=== PATIENT | female | born 1975 | race Hispanic/Latino ===

== ENCOUNTER 2023-01-27 17:22 | Emergency (ER) | payer OTHER, BC ==
[~2023-01-27] VITALS: Ht 165.1 cm; Wt 129.3 kg
[2023-01-27 17:46] VITALS: BP 148/81; PULSE 80; RESP 18
[2023-01-27 18:57] LABS: BASOPHILS # (AUTO) 0.05 K/uL (0.00-0.20); BASOPHILS % (AUTO) 0.5 % (0.0-5.0); EOSINOPHILS # (AUTO) 0.57 K/uL (0.00-0.70); EOSINOPHILS % (AUTO) 5.4 % (0.0-8.0); IMMATURE GRANULOCYTE ABSOLUTE 0.01 K/uL (0-1); LYMPHOCYTES # (AUTO) 3.3 K/uL (1.0-4.8); MEAN CORPUSCULAR HEMOGLOBIN 27.6 pg (27.0-33.0); MEAN CORPUSCULAR HGB CONC 32.8 g/dL (32.0-36.0); MEAN CORPUSCULAR VOLUME 84.4 fL (79-99); MONOCYTES # (AUTO) 0.7 K/uL (0.1-1.0); MONOCYTES % (AUTO) 6.6 % (3.0-13.0); NEUTROPHILS % (AUTO) 56.4 % (40.0-77.0); PLATELET COUNT (AUTO) 305 K/uL (130-400); RED BLOOD CELL COUNT(AUTO) 4.74 MIL/uL (4.00-5.50); RED CELL DISTRIBUTION WIDTH 15.2 % (11.0-15.5); WHITE BLOOD COUNT (AUTO) 10.5 K/uL (4.8-10.8)
[2023-01-27 19:09] LABS: CREATININE 0.8 mg/dL (0.5-1.5); POTASSIUM 3.9 mmol/L (3.5-5.1)
[2023-01-27 19:14] LABS: ALBUMIN 3.6 g/dL (3.5-5.0); BILIRUBIN,TOTAL 0.2 mg/dL (0.2-1.0); TOTAL PROTEIN, SERUM 7.7 g/dL (6.0-8.3)
== END 2023-01-27 21:33 | disposition left against medical advice (07) ==
LOC: EDH 17:22
DX: R10.9 Unspecified abdominal pain (principal); Z53.21 Procedure and treatment not carried out due to patient leaving prior to being seen by health care provider
CPT/HCPCS: 36415; 80053; 85025; 99281

== ENCOUNTER 2024-10-29 11:19 | Inpatient (IN) | payer BC, OTHER ==
[~2024-10-29] VITALS: Ht 165.1 cm; Wt 110.7 kg
[2024-10-29] VITALS (16 sets, daily range): BP systolic 123–153; BP diastolic 65–82; PULSE 69–97; RESP 17–22; TEMP 97.4–98.5
--- NOTE | 2024-10-29 11:42 | ERN ---
General Chief Complaint: Abdominal Pain Stated Complaint: ABDOMINAL PAIN Time Seen by MD: 11:20 Source: patient History of Present Illness Initial Comments PATIENT IS A 48-YEAR-OLD FEMALE COMING IN COMPLAINING OF ABDOMINAL DISCOMFORT. PATIENT STATES HE HAS A AN UMBILICAL HERNIA HIS CAUSING HER SOME DISCOMFORT. SHE STATES SHE PATIENT IS A DOWN IT GOES IN. Allergies: Coded Allergies: No Known Drug Allergies (Unverified Allergy, Unknown, 01/27/23) Past Medical History Past Medical History: Liver Disease Medical History Other: HERNIA Past Surgical History: None ROS Dictation CONSTITUTIONAL: NO CHILLS, NO FEVER, NO WEAKNESS, NO DIAPHORESIS, NO MALAISE. HEAD/FACE: NO SIGNS OF TRAUMA. EENT: NO EYE PAIN, NO BLURRED VISION, NO TEARING, NO DOUBLE VISION, NO EAR PAIN, NO EAR DISCHARGE, NO NOSE PAIN, NO NASAL CONGESTION, NO THROAT PAIN, NO THROAT SWELLING, NO MOUTH PAIN. RESPIRATORY: NO COUGH, NO ORTHOPNEA, NO SOB, NO STRIDOR, NO WHEEZING. CARDIOVASCULAR: NO CHEST PAIN, NO EDEMA, NO PALPITATIONS, NO SYNCOPE. GASTROINTESTINAL/ABDOMINAL: NO ABDOMINAL PAIN, NO CONSTIPATION, NO DIARRHEA, NO NAUSEA, NO VOMITING. GENITOURINARY: NO ABNORMAL DISCHARGE, NO DYSURIA, NO FREQUENT URINATION, NO HEMATURIA. NO COMPLAINTS OF PAIN IN THE GENITALS. MUSCULOSKELETAL: NO BACK PAIN, NO GOUT, NO JOINT PAIN, NO JOINT SWELLING, NO MUSCLE PAIN, NO MUSCLE STIFFNESS, NO NECK PAIN. INTEGUMENTARY: NO CHANGE IN COLOR, NO CHANGE IN HAIR/NAILS, NO DRYNESS, NO LESION, NO LUMPS, NO RASH. NEUROLOGICAL/PSYCH: NO ANXIETY, NOT DEPRESSED, NO EMOTIONAL PROBLEM, NO HEADACHE, NO NUMBNESS, NO PRE-EXISTING DEFICIT, NO HISTORY OF SEIZURES, NO TREMORS, NO WEAKNESS. HEMATOLOGIC/LYMPHATIC: NOT ANEMIC, NO HISTORY OF BLOOD CLOTS, NO APPARENT BLEEDING, NO BRUISING, GLANDS NOT SWOLLEN. ALL SYSTEMS NEGATIVE, EXCEPT NOTED. Physical Exam Physical Exam Dictation VITAL SIGNS: REVIEWED. GENERAL APPEARANCE: ALERT, ORIENTED X3, NO ACUTE DISTRESS, OBESE. HEAD AND FACE: NON-TRAUMATIC. EYES: PERRL, PINK CONJUNCTIVAS, EYELID NO TRAUMA, ANTERIOR CHAMBER CLEAR. EARS: PINNAS INTACT AND NO SIGNS OF TRAUMA OR ERYTHEMA. EAR CANALS CLEAR AND NO DISCHARGE. TMS NO ERYTHEMA. NOSE: NO DISCHARGE, NO BLEEDING. OROPHARYNX: MOUTH NORMAL, TEETH NO CARIES, TONGUE PINK. PHARYNX CLEAR, NO ERYTHEMA. TONSILS NO EXUDATES, NO ABSCESSES NOTED. MUCOUS MEMBRANE MOIST. NECK: SUPPLE, NON-TENDER, NO THYROMEGALY, NO MASSES, NO JVD, NO BRUITS. BREAST: DEFERRED. CHEST: NO TENDERNESS, NO CREPITUS, NO PARADOXICAL MOVEMENT, NO RETRACTIONS. LUNGS: CLEAR, WELL-VENTILATED, SYMMETRIC, NO RALES, NO WHEEZING, NO RHONCHI, NO STRIDOR, GOOD BREATH SOUNDS BILATERALLY. HEART: REGULAR RATE, REGULAR RHYTHM, NO MURMUR, NO GALLOPS. VASCULAR: NO PERIPHERAL EDEMA. ABDOMEN: SOFT, POSITIVE BOWEL SOUNDS, NONDISTENDED, NO GUARDING, NONTENDER, NO REBOUND, NO MASSES NO HEPATOMEGALY, NO SPLENOMEGALY, NO CHAVEZ'S SIGN, NO HERNIAS. RECTAL: DEFERRED. GENITAL: DEFERRED. NEUROLOGICAL: NORMAL SPEECH, GROSS MOTOR FUNCTION INTACT, GROSS SENSORY FUNCTION INTACT. MUSCULOSKELETAL: NECK NONTENDER, FULL RANGE OF MOTION, BACK NONTENDER, FULL RANGE OF MOTION. EXTREMITIES: NONTENDER, FULL RANGE OF MOTION. SKIN: COLOR PINK, DRY, NO TURGOR, NO RASH, NO LACERATIONS, NO ABRASIONS, NO CONTUSIONS. LYMPHATICS: DEFERRED. Results Laboratory and Microbiology Lab and Micro Result Laboratory Tests Test 10/29/24 12:00 10/29/24 13:54 Urine HCG, Qualitative NEGATIVE (NEGATIVE) Urine Opiates Screen NEGATIVE (NEGATIVE) Urine Barbiturates Screen NEGATIVE (NEGATIVE) Urine Phencyclidine Screen NEGATIVE (NEGATIVE) Urine Amphetamines Screen NEGATIVE (NEGATIVE) Urine Benzodiazepines Screen NEGATIVE (NEGATIVE) Urine Cocaine Screen NEGATIVE (NEGATIVE) Urine Marijuana (THC) Screen POSITIVE (NEGATIVE) H White Blood Count 11.3 K/uL (4.8-10.8) H Red Blood Count 5.14 MIL/uL (4.00-5.50) Hemoglobin 12.5 g/dL (12.0-16.0) Hematocrit 39.4 % (36-48) Mean Corpuscular Volume 76.7 fL (79-99) L Mean Corpuscular Hemoglobin 24.3 pg (27.0-33.0) L Mean Corpuscular Hemoglobin Concent 31.7 g/dL (32.0-36.0) L Red Cell Distribution Width 19.9 % (11.0-15.5) H Platelet Count 236 K/uL (130-400) Mean Platelet Volume 10.4 fL (7.5-10.5) Immature Granulocyte % (Auto) 0.4 % (0-1) Neutrophils (%) (Auto) 74.2 % (40.0-77.0) Lymphocytes (%) (Auto) 17.8 % (21.0-51.0) L Monocytes (%) (Auto) 5.5 % (3.0-13.0) Eosinophils (%) (Auto) 1.6 % (0.0-8.0) Basophils (%) (Auto) 0.5 % (0.0-5.0) Neutrophils # (Auto) 8.4 K/uL (1.8-7.7) H Lymphocytes # (Auto) 2.0 K/uL (1.0-4.8) Monocytes # (Auto) 0.6 K/uL (0.1-1.0) Eosinophils # (Auto) 0.18 K/uL (0.00-0.70) Basophils # (Auto) 0.06 K/uL (0.00-0.20) Absolute Immature Granulocyte (auto 0.04 K/uL (0-1) Nucleated Red Blood Cells 0.0 % (0.0-0.19) Sodium Level 138 mmol/L (136-145) Potassium Level 3.4 mmol/L (3.5-5.1) L Chloride Level 102 mmol/L (101-111) Carbon Dioxide Level 24 mmol/L (21-32) Blood Urea Nitrogen 19 mg/dL (7-18) H Creatinine 0.6 mg/dL (0.5-1.0) Glomerular Filtration Rate Calc 111 mL/min (>90) Random Glucose 108 mg/dL (70-105) H Total Calcium 8.7 mg/dL (8.5-10.1) Labs Reviewed?: Yes EKG/XRAY/US/CT/MRI CT Scan Comment [place] [id number] [id number] IMAGING REPORT Signed PATIENT: ALYSIA ALFONSO MR#: [id number] : 1975 SEX: F AGE: 48 LOCATION: [facility] ORDER [id number] STATUS: REG ER REPORT#: [id number] SERVICE 1234 REASON: ABD PAIN ORDERING PHYSICIAN: ITZEL SULLIVAN MD PROCEDURE: ABD PEL WO - CT ABDOMEN/PELVIS W/O CONTRAST EXAM: CT Abdomen and Pelvis Without IV contrast CLINICAL HISTORY: Abdominal pain TECHNIQUE: Axial computed tomography images of the abdomen and pelvis without intravenous contrast. CONTRAST: No IV contrast. COMPARISON: None provided. FINDINGS: LUNG BASES: Clear. No pleural effusions. LIVER: Unremarkable. GALLBLADDER AND BILE DUCTS: Gallbladder is within normal limits. No radioopaque gallstones or biliary ductal dilatation. PANCREAS: Unremarkable. SPLEEN: Unremarkable. ADRENAL GLANDS: Unremarkable. KIDNEYS, URETERS, AND BLADDER: Normal renal morphology. No hydronephrosis, hydroureter, or urinary calculi. STOMACH AND BOWEL: Small umbilical hernia with a defect in the anterior abdominal wall measuring approximately 2.7 x 1.7 cm. The hernial sac contains small bowel loops and associated mesentery. Configuration of herniated bowel loops is consistent with closed loop small bowel obstruction. Herniated loops show wall thickening and mesenteric edema. No significant dilatation of proximal small bowel. No pneumatosis or portal venous gas. No free intraperitoneal air. No evidence of bowel obstruction elsewhere. APPENDIX: Not visualized. No CT evidence of appendicitis. PERITONEUM: No free fluid. LYMPH NODES: No lymphadenopathy. REPRODUCTIVE ORGANS: Unremarkable as visualized. VASCULATURE: No evidence of abdominal aortic aneurysm. BONES: No acute or aggressive osseous pathology. IMPRESSION: 1. Incarcerated umbilical hernia (2.7 x 1.7 cm defect) containing small bowel with features concerning for closed loop bowel obstruction, including bowel wall thickening and mesenteric edema. /[place] DICTATED BY: PEYTON HAILE MD DATE: 10/29/241515 ELECTRONICALLY SIGNED BY: PEYTON HAILE MD DATE: 10/29/241515 [facility] MDM: DIFFERENTIAL DIAGNOSIS: SMALL-BOWEL OBSTRUCTION, HYPEREMESIS CANNABIS, GASTRITIS, UMBILICAL HERNIA RATIONALE: TESTS CONSIDERED AND ORDERED SECONDARY TO SHARED DECISION MAKING INCLUDE: PREVIOUS OUTSIDE RECORDS REVIEWED: OLD ER VISITS. RISK OF COMPLICATION AND/OR MORBIDITY OR MORTALITY OF PATIENT MANAGEMENT: NONE MEDICATIONS-PER MEDICATION RECONCILIATION NEED FOR HOSPITALIZATION: PATIENT DOES MEET CRITERIA FOR HOSPITALIZATION. NEED FOR EMERGENCY MAJOR/MINOR SURGERY: NO THERE ARE NO SOCIAL CONCERNS WITH THIS PATIENT. PRESCRIPTION DRUG MANAGEMENT PRESCRIPTIONS WILL INCLUDE SYMPTOMATIC CARE PATIENT'S PRIOR EXTERNAL MEDICAL RECORDS FROM OTHER ER VISITS WERE REVIEWED BY ME INDICATED. PRIOR TESTING AND RESULTS FROM PREVIOUS VISITS WERE REVIEWED. PRIOR TESTS WERE TAKEN INTO ACCOUNT WITH MEDICAL DECISION MAKING AND RESOURCE UTILIZATION, INDEPENDENT HISTORIAN/HISTORIANS WERE USED TO OBTAIN COMPLETE MEDICAL HISTORY. I INDEPENDENTLY INTERPRETED THE TEST THAT WERE PERFORMED, RESULTS WERE REVIEWED BY ME AND CONSIDERED FINDINGS ON RADIOLOGY IF ORDERED. MEDICAL MANAGEMENT AND EXAMINATION INTERPRETATION DISCUSSIONS WERE HAD BY ME WITH OTHER QUALIFIED HEALTHCARE PROFESSIONALS INDICATED FOR THE PATIENT'S CARE. PATIENT WILL BE ADMITTED UNDER THE CARE OF HOSPITALIST GROUP FOR ONGOING MANAGEMENT. DR. WORRELL SURGEON ON THE CASE. ED Course Orders Procedure Category Date Status Time Abdominal Binder CPOE 10/29/24 Transmitted 12:17 Ketorolac PHA 10/29/24 Complete Tromethamine 30mg/Ml 12:30 ,Urine Test LAB 10/29/24 Complete 12:29 Orphenadrine Citrate PHA 10/29/24 Complete (Norflex) 12:30 Ct Abdomen/Pelvis W/O CT 10/29/24 Resulted Contrast 12:34 Pantoprazole 40mg Inj PHA 10/29/24 Complete (Protonix 40mg Inj 13:30 Drug Screen Urine LAB 10/29/24 Complete 13:09 Cbc With Differential LAB 10/29/24 In Process 13:31 Comprehensive LAB 10/29/24 In Process Metabolic Panel 13:31 0.9%Nacl 1000ml (Ns PHA 10/29/24 Complete 1000ml) 14:00 Ondansetron 4mg Inj PHA 10/29/24 Complete (Zofran 4mg Inj) 14:00 12 Lead Ekg Tracing- EKG 10/29/24 Logged Technical 13:46 Morphine 2mg Syg PHA 10/29/24 Complete (Morphine 2mg Syg) 14:00 Current Medications Medications (Trade) Dose Ordered Sig/Katarzyna Route PRN Reason Start Time Stop Time Status Last Admin Dose Admin Ketorolac Tromethamine (toRADol) 30 mg ONCE ONCE IM 10/29/24 12:30 10/29/24 12:32 DC 10/29/24 12:42 Morphine Sulfate (morPHINE 2MG SYG) 2 mg ONCE ONCE IVP 10/29/24 14:00 10/29/24 14:01 DC 10/29/24 13:57 Ondansetron HCl (zoFRAN 4MG INJ) 4 mg ONCE ONCE IVP 10/29/24 14:00 10/29/24 14:01 DC Orphenadrine Citrate (Norflex) 60 mg ONCE ONCE IM 10/29/24 12:30 10/29/24 12:32 DC 10/29/24 12:42 Pantoprazole Sodium (PROTonix 40MG INJ) 40 mg ONCE ONCE IVP 10/29/24 13:30 10/29/24 13:31 DC 10/29/24 13:19 Sodium Chloride 1,000 ml @ 0 mls/hr ONCE ONCE IV 10/29/24 14:00 10/29/24 14:01 DC 10/29/24 13:56 Vital Signs Date Time Temp Pulse Resp B/P (MAP) Pulse Ox O2 Delivery O2 Flow Rate FiO2 10/29/24 11:25 99.3 79 20 130/76 99 Room Air* 0 21 10/29/24 11:21 99.3 79 20 130/76 99 Room Air 0 DX & DISP Disposition: Inpatient Decision to Admit Time: 14:29 Departure Impression: Primary Impression: SBO (small bowel obstruction) Additional Impression: Umbilical hernia, incarcerated Condition: Stable Referrals: DAVID ROJO (PCP) ITZEL SULLIVNA MD Oct 29, 2024 11:42
--- NOTE | 2024-10-29 12:18 | NUR ---
ABD BINDER PLACED ON PATIENT AT THIS TIME. PT TOLERATED PROCEDURE WELL.
[2024-10-29] MEDS: ORPHENADRINE 60MG/2ML IM ONE (12:42)
[2024-10-29 13:23] LABS: AMPHET/METH SCREEN,URINE NEGATIVE (NEGATIVE); BARBITURATE SCREEN, URINE NEGATIVE (NEGATIVE); CANNABINOID SCREEN,URINE POSITIVE (NEGATIVE); COCAINE SCREEN,URINE NEGATIVE (NEGATIVE)
[2024-10-29] MEDS: 0.9%NACL 1000ML 1,000 ML IV ONE (13:56)
[2024-10-29 14:04] LABS: IMMATURE GRANULOCYTE ABSOLUTE 0.04 K/uL (0-1); NUCLEATED RED BLOOD CELLS 0.0 % (0.0-0.19); PLATELET COUNT (AUTO) 236 K/uL (130-400); RED BLOOD CELL COUNT(AUTO) 5.14 MIL/uL (4.00-5.50); RED CELL DISTRIBUTION WIDTH 19.9 % (11.0-15.5); WHITE BLOOD COUNT (AUTO) 11.3 K/uL (4.8-10.8)
--- NOTE | 2024-10-29 14:17 | HMCIMG ---
EXAM: CT Abdomen and Pelvis Without IV contrast CLINICAL HISTORY: Abdominal pain TECHNIQUE: Axial computed tomography images of the abdomen and pelvis without intravenous contrast. CONTRAST: No IV contrast. COMPARISON: None provided. FINDINGS: LUNG BASES: Clear. No pleural effusions. LIVER: Unremarkable. GALLBLADDER AND BILE DUCTS: Gallbladder is within normal limits. No radioopaque gallstones or biliary ductal dilatation. PANCREAS: Unremarkable. SPLEEN: Unremarkable. ADRENAL GLANDS: Unremarkable. KIDNEYS, URETERS, AND BLADDER: Normal renal morphology. No hydronephrosis, hydroureter, or urinary calculi. STOMACH AND BOWEL: Small umbilical hernia with a defect in the anterior abdominal wall measuring approximately 2.7 x 1.7 cm. The hernial sac contains small bowel loops and associated mesentery. Configuration of herniated bowel loops is consistent with closed loop small bowel obstruction. Herniated loops show wall thickening and mesenteric edema. No significant dilatation of proximal small bowel. No pneumatosis or portal venous gas. No free intraperitoneal air. No evidence of bowel obstruction elsewhere. APPENDIX: Not visualized. No CT evidence of appendicitis. PERITONEUM: No free fluid. LYMPH NODES: No lymphadenopathy. REPRODUCTIVE ORGANS: Unremarkable as visualized. VASCULATURE: No evidence of abdominal aortic aneurysm. BONES: No acute or aggressive osseous pathology. IMPRESSION: 1. Incarcerated umbilical hernia (2.7 x 1.7 cm defect) containing small bowel with features concerning for closed loop bowel obstruction, including bowel wall thickening and mesenteric edema. /[place]
[2024-10-29 14:25] LABS: CREATININE 0.6 mg/dL (0.5-1.0); GLOMERULAR FILTR. RATE CALC 111.0 mL/min (>90); GLUCOSE,RANDOM 108.0 mg/dL (70-105); SODIUM SERUM 138.0 mmol/L (136-145); UREA NITROGEN, BLOOD 19.0 mg/dL (7-18)
[2024-10-29 14:37] LABS: ASPARTATE AMINOTRANSFERASE 27.0 U/L (10-37); TOTAL PROTEIN, SERUM 7.4 g/dL (6.0-8.3)
--- NOTE | 2024-10-29 15:01 | HP ---
[facility] HISTORY AND PHYSICAL Date of Service: Oct 29, 2024 Time of Service: 15:01 HISTORY OF PRESENT ILLNESS: 48-year-old female with history of fatty liver disease who presented to the hospital secondary to abdominal pain. Patient states she has a history of umbilical hernia and she noted that she was having pain for the past two days. Her pain got worse today and she felt her hernia was hot to touch. She had associated nausea vomiting. She felt her stomach was ' inflamed' the pain. She denied any fever, chills, chest pain, shortness of breath, dysuria. Denied any cardiac history and denies any chest pain with exertion. She only takes rezdrifa for fatty liver and is on diet control for diabetes mellitus type 2. Her Bowel movement was two days ago. Patient denied any diarrhea at home. She takes Linzess for constipation. Labs in the ED were notable for white count of 11.3, hemoglobin was 12.5, platelet count was 236 K sodium was 138, potassium was 3.4, bicarb was 24, creatinine was 0.6, blood glucose was one. Patient underwent a CT abdomen pelvis which showed incarcerated umbilical hernia containing small bowel with features concerning for closed loop bowel obstruction. There is bowel thickening with mesenteric edema that was noted In the ED general surgery was consulted who agreed to consult on the case. Additionally she also had a NG tube placed in the ER. REVIEW OF SYSTEMS CONSTITUTIONAL: Denies fevers, chills, or night sweats. No unintentional weight loss reported. NEUROLOGICAL: Denies headache, amaurosis fugax, motor weakness, sensory deficit, vertigo/spinning sensation, gait abnormalities, or tremors. ENT: No hearing loss, otalgia, otorrhea, rhinitis, rhinorrhea, hoarseness, or sore throat. CARDIOVASCULAR: Denies any exertional angina, dyspnea on exertion, orthopnea, paroxysmal nocturnal dyspnea, palpitations, life-threatening arrhythmias, claudication. PULMONARY: Denies any shortness of breath, cough, phlegm/sputum, hemoptysis, pleuritic chest pain. SLEEP: Denies morning headaches, daytime somnolence or napping. Denies difficulty falling asleep, staying asleep, waking from sleep. Denies knowledge of snoring. GASTROINTESTINAL: Denies any type of dysphagia to either liquids or solids. Denies nausea, vomiting, pyrosis, early satiety, abdominal pain, diarrhea, constipation, or changes in stool consistency or caliber. Denies coffee-ground emesis, hematemesis, hematochezia, or melanotic stools. GENITOURINARY: Denies frequency, urgency, nocturia, hematuria or incontinence (Storage/Irritative symptoms.) Low urinary stream, straining to void, urinary intermittency or hesitancy, splitting of the voiding stream, terminal dribbling. ENDOCRINOLOGIC: Denies polyuria, polydipsia, polyphagia or heat/cold intolerances. HEMATOLOGIC: Denies thrombophilia/previous clots, or coagulopathy/bleeding disorders. ONCOLOGIC: Denies personal history of malignancy. DERMATOLOGIC: Denies rashes or pruritus. PSYCHIATRIC: Denies any suicidal or homicidal ideation. Denies hallucinations. PAST MEDICAL HISTORY: History of fatty liver disease PAST SURGICAL HISTORY: History of appendectomy PAST SOCIAL HISTORY: Denied any smoking, alcohol, drug. Patient uses marijuana at home FAMILY HISTORY: Denied any pertinent family history Coded Allergies: No Known Drug Allergies (Unverified Allergy, Unknown, 01/27/23) PHYSICAL EXAM GENERAL APPEARANCE: The patient is awake, alert, and oriented, in no acute cardiopulmonary distress. NEUROLOGICAL: Cranial nerves II-XII grossly intact. Motor is 5/5 in bilateral upper and lower extremities proximal to distal. No sensory deficits. HEENT: Face is symmetric. Pupils are equal and reactive. Extraocular movements are intact. NECK: Supple. No JVD. No thyromegaly. No submental, submandibular, pre- /postauricular, occipital or supraclavicular lymphadenopathy. CHEST: Normal chest expansion. No Telemetry. LUNGS: Absence of any rales, rhonchi or any wheezing. CARDIOVASCULAR: Regular. S1 and S2 normal. No appreciable rubs, murmurs or gallops. ABDOMEN: Soft, currently has abdominal binder present. Abdomen is soft to touch. She has a incarcerated abdominal hernia present she is noted to be hard to touch. There is guarding present around the hernia area. Bowel sounds are active. : Deferred. No Guillen. EXTREMITIES: Non-edematous and not cyanotic. No clubbing. Good capillary refill. SKIN: No skin breakdown. Vital Sign (Last 24 Hours) 10/29/24 11:25 Temp 99.3 Pulse 79 Resp 20 B/P (MAP) 130/76 Pulse Ox 99 O2 Delivery Room Air* O2 Flow Rate 0 FiO2 21 LABS: Laboratory: Test 10/29/24 13:54 10/29/24 12:00 Range/Units White Blood Count 11.3 H 4.8-10.8 K/uL Red Blood Count 5.14 4.00-5.50 MIL/uL Hemoglobin 12.5 12.0-16.0 g/dL Hematocrit 39.4 36-48 % Mean Corpuscular Volume 76.7 L 79-99 fL Mean Corpuscular Hemoglobin 24.3 L 27.0-33.0 pg Mean Corpuscular Hemoglobin Concent 31.7 L 32.0-36.0 g/dL Red Cell Distribution Width 19.9 H 11.0-15.5 % Platelet Count 236 130-400 K/uL Mean Platelet Volume 10.4 7.5-10.5 fL Immature Granulocyte % (Auto) 0.4 0-1 % Neutrophils (%) (Auto) 74.2 40.0-77.0 % Lymphocytes (%) (Auto) 17.8 L 21.0-51.0 % Monocytes (%) (Auto) 5.5 3.0-13.0 % Eosinophils (%) (Auto) 1.6 0.0-8.0 % Basophils (%) (Auto) 0.5 0.0-5.0 % Neutrophils # (Auto) 8.4 H 1.8-7.7 K/uL Lymphocytes # (Auto) 2.0 1.0-4.8 K/uL Monocytes # (Auto) 0.6 0.1-1.0 K/uL Eosinophils # (Auto) 0.18 0.00-0.70 K/uL Basophils # (Auto) 0.06 0.00-0.20 K/uL Absolute Immature Granulocyte (auto 0.04 0-1 K/uL Nucleated Red Blood Cells 0.0 0.0-0.19 % Red Blood Cell Morphology See comments Sodium Level 138 136-145 mmol/L Potassium Level 3.4 L 3.5-5.1 mmol/L Chloride Level 102 101-111 mmol/L Carbon Dioxide Level 24 21-32 mmol/L Blood Urea Nitrogen 19 H 7-18 mg/dL Creatinine 0.6 0.5-1.0 mg/dL Glomerular Filtration Rate Calc 111 >90 mL/min Random Glucose 108 H 70-105 mg/dL Total Calcium 8.7 8.5-10.1 mg/dL Total Bilirubin 0.3 0.2-1.0 mg/dL Aspartate Amino Transf (AST/SGOT) 27 10-37 U/L Alanine Aminotransferase (ALT/SGPT) 45 12-78 U/L Alkaline Phosphatase 126 50-136 U/L Total Protein 7.4 6.0-8.3 g/dL Albumin 3.6 3.5-5.0 g/dL Urine HCG, Qualitative NEGATIVE NEGATIVE Urine Opiates Screen NEGATIVE NEGATIVE Urine Barbiturates Screen NEGATIVE NEGATIVE Urine Phencyclidine Screen NEGATIVE NEGATIVE Urine Amphetamines Screen NEGATIVE NEGATIVE Urine Benzodiazepines Screen NEGATIVE NEGATIVE Urine Cocaine Screen NEGATIVE NEGATIVE Urine Marijuana (THC) Screen POSITIVE H NEGATIVE DIAGNOSTICS / RADIOLOGY: [ ] ASSESSMENT: Abdominal pain secondary to incarcerated umbilical hernia with concern for closed bowel loop obstruction POA Mild leukocytosis Dehydration History of fatty liver disease Obesity BMI 40.1 History of marijuana use PLAN: - patient to be admitted to medical-surgical unit with telemetry -in reference to abdominal pain. Patient will be NPO for now. Keep patient on NG tube to low intermittent wall suction. Patient will be started on IV fluids and IV Rocephin we will request consultation with General surgery. Patient we will likely need surgery today in setting of incarceration of hernia. Case was discussed with surgery. We will follow recommendations. - obtain home medications which will be reconciled once available -patient will be on morphine and Toradol for pain control -check coagulation panel, hemoglobin A1c -further orders per hospitalization course. Advanced Care Planning Which of the following were discussed: Hospice care: Yes __ No _x_ Therapeutic options: Yes __ No __ Advance directives: Yes __ No __ Other discussions: Discussed with who?: patient (Patient, family or surrogates) Voluntary nature of this service was explained to the patient? Yes _x_ No __ Amount of time spent: 25 minutes SUHAS Campos MD, MD Oct 29, 2024 15:01
[2024-10-29 15:04] LABS: INR 1.01 (0.85-1.15)
[2024-10-29] MEDS: 0.9%NACL 1000ML 1,000 ML IV SCH (16:21)
--- NOTE | 2024-10-29 16:21 | CONS ---
TAYA WINSTON Jr. 10/29/24 1621: CONSULT NOTE: Consulting physician: Dr Wagner Consulting service: General surgery Reason for consultation: Incarcerated umbilical hernia History of present illness: This is a 48-year-old female with a history of fatty liver disease that has been consulted to surgery after presenting to the hospital with a one day history of umbilical pain. Patient unsure how long she has had umbilical hernia reports significant discomfort and inability to reduce content at hernia site. On physical exam earlier today reported by primary team patient is in significant pain. At time of my exam patient's pain better controlled. NG tube has been placed is to LIS. Hernia not reducible but tender. Imaging concerning for possible closed loop obstruction. Medical history: Fatty liver Surgical history: Appendectomy Tubal ligation Review of systems: General: No Fever, No Chills, No Night Sweats, No Fatigue, No Malaise, No Appetite, No Other HEENT: No Head Aches, No Visual Changes, No Eye Pain, No Ear Pain, No Dysphasia, No Sinus Congestion, No Post Nasal Drip, No Sore Throat, No Other Pulmonary: No Dyspnea, No Cough, No Pleuritic Chest Pain, No Other Cardiovascular: No: Chest Pain, Palpitations, Orthopnea, Paroxysmal No Dyspnea, Edema, Lt Headedness, Other Gastrointestinal: No: Nausea, Vomiting, Diarrhea, Constipation, Melena, Hematochezia, Other Genitourinary: No Dysuria, No Frequency, No Incontinence, No Hematuria, No Retention, No Other Musculoskeletal: No: other, neck pain, shoulder pain, arm pain, back pain, hand pain, leg pain, foot pain Skin: No Urticaria, No Rash, No Other Neurological: No: Weakness, Numbness, Incoordination, Change in speech, Confusion, Seizures, Other Physical exam: General: Awake alert and oriented NG in place Heart: Regular rate and rhythm} Lungs: [Clear to auscultation no distress Abdomen: Umbilical hernia non reducible with improving tenderness IMPRESSION: 1. Incarcerated umbilical hernia (2.7 x 1.7 cm defect) containing small bowel with features concerning for closed loop bowel obstruction, including bowel wall thickening and mesenteric edema. Assessment: This is a 48-year-old female with concerns of incarcerated umbilical hernia Plan: This point in time patient to remain NPO NG tube to continue to LIS Continue with the abdominal binder and pressure dressing Patient is likely to be taken to OR for reduction of umbilical hernia Surgical team to follow patient closely and Dr. Worrell to see patient later today SHRUTHI WORRELL MD 10/29/241827: CONSULT NOTE: as above patient seen and evaluated in ER. images and labs reviewed she has had a history of lap band placement and subsequent removal, lap appendectomy. she was aware of this umbilical hernia she has an incarcerated umbilical hernia that has caused sbo. she has ngt in placed--not much out of cannister. she is complaining of a lot of tenderness abd: soft but umbilical hernia incarcerated and very tender with skin changes (skin looks a little dark almost dusky) I am concerned about strangulated ischemic bowel I will take her to OR now for an open umbilical hernia repair, possible bowel resection (most likely this will be primary repair) discussed the risks bleeding, infection, recurrence (she is obese and bmi 40); if we used mesh (I do not think I will) there could be potential complications with mesh; leak from small bowel anastomosis if we have to do small bowel resection. she agrees to surgery and potential risks. TAYA WINSTON Jr. Oct 29, 2024 16:21 SHRUTHI WORRELL MD Oct 29, 2024 18:28
--- NOTE | 2024-10-29 16:24 | NUR ---
DCP:HOME Pt currently lives with her sps Abdullahi Block in their home. Pt does not have any DME, home health, or provider services. Pt states that she is able to complete ADLs independently. PCP is Dr. Rodrigo Nathan and uses [facility] for any RX needs. At [place] pt will want to go home and family can assist with transportation. Addendum: 10/29/24 at 1627 by KIM ROMERO SS Amended: Links added.
--- NOTE | 2024-10-29 16:32 | HMCIMG ---
EXAM: CR Abdomen, 2 View. CLINICAL HISTORY: Please assess NG tube location, post insertion COMPARISON: CT images from earlier today FINDINGS: Enteric tube terminates within the stomach. BOWEL: Prominent air-filled loops of small bowel measuring up to 3.9 cm reflecting a persistent small bowel obstruction. PERITONEUM/SOFT TISSUES: No free air evident. No pathologic appearing calcification. BONES: No aggressive appearing osseous lesion seen. IMPRESSION: 1. Small bowel obstruction with dilated loops measuring up to 3.9 cm. 2. Enteric tube appropriately positioned within the stomach. /[place]
[2024-10-29 17:51] LABS: APPEARANCE,URINE TURBID (CLEAR); GLUCOSE, URINE (UA) NEGATIVE (NEGATIVE); LEUKOCYTE ESTERASE ,URINE NEGATIVE Leu/uL (NEGATIVE); NITRATE,URINE NEGATIVE (NEGATIVE); OCCULT BLOOD,URINE MODERATE (NEGATIVE)
[2024-10-29 17:52] LABS: ADD UA MICROSCOPIC YES
[2024-10-29 17:54] LABS: SQUAMOUS EPITHELIAL CELL,UR FEW /HPF (0-2)
[2024-10-29] MEDS ORDERED: SUCCINYLCHOLINE CHLORIDE 20 MG/ML 10 ML VIAL ONE (18:39)
[2024-10-29] MEDS ORDERED: MIDAZOLAM HCL 1 MG/ML 2ML VIAL ONE (18:39)
[2024-10-29] MEDS ORDERED: LIDOCAINE PF 100MG/5ML (2%) SYRINGE 5ML ONE (18:39)
[2024-10-29] MEDS: SUGAMMADEX SODIUM 200 MG/2 ML VIAL IV ONE (20:34)
--- NOTE | 2024-10-29 21:27 | OP ---
Operative Note: DATE OF PROCEDURE: 10/29/24 SURGEON: SHRUTHI WORRELL MD TREE FELLER OPERATOR: HEATHER Colunga ANESTHESIA: General ANESTHESIOLOGIST/ELECTRICIAN DECK: TC [place] PREOPERATIVE DIAGNOSIS: Small-bowel obstruction, incarcerated umbilical hernia POSTOPERATIVE DIAGNOSIS: Small-bowel obstruction, incarcerated and strangulated umbilical hernia SYNOPSIS: Small-bowel obstruction secondary to incarcerated and strangulated umbilical hernia, ischemic small bowel, umbilical defect measured 2 cm x 1 cm PROCEDURE: Open primary repair of umbilical hernia with small bowel resection (17.5 cm resected) and anastomosis ESTIMATED BLOOD LOSS: 50 mL DRAINS: #7 F LESLEE drain placed in subcutaneous tissue INDICATIONS: 48-year-old morbidly obese female with a previously known umbilical hernia presented to the ER with a two day history of periumbilical pain that worsened today. She has had associated nausea and vomiting. Imaging studies showed a small-bowel obstruction secondary to an incarcerated umbilical hernia. An NG-tube was placed in the ER. On abdominal exam she was noted to have skin changes overlying the umbilical hernia and there was concern about the incarcerated umbilical herniated being strangulated. An emergent intervention was indicated. The plan was to do an open primary repair of the umbilical hernia with possible small bowel resection. Informed consent was obtained prior to the procedure which included a discussion about the risks of the surgery such as bleeding, infection, increased risk recurrence of hernia (the patient has a BMI of 40 and is morbidly obese), complications with a small bowel resection such as anastomotic leak. DESCRIPTION OF PROCEDURE: The patient was taken to the operating room and placed on the operating table in supine position. Next general anesthesia was induced and the patient was intubated. Her abdomen was prepped and draped in a sterile fashion. A time-out was called and the patient's identity, procedure and preoperative antibiotics were confirmed. I made a generous midline periumbilical incision. The dissection was carried down into the subcutaneous tissue. She did have a thicker abdominal wall due to her obesity. I identified the midline of the fascia and carefully entered the intra-abdominal cavity. I was able to reduce the periumbilical hernia. The defect was about 2 x 1 cm. The incarcerated and strangulated small bowel that was reduced was noted to be ischemic. The bowel proximal to the hernia was a little dilated consistent with small-bowel obstruction. I elected to resect that small bowel. I resected 17.5 cm of the small bowel. I used a 60 mm power echelon white loads to transect proximally and distally to the ischemic area. Afterwards I closed the mesenteric defect with 3-0 V lock suture. Next I made [id number] enterotomies to create a functional end-to-end anastomosis. I used a power echelon stapler with a white load to anastomose the small bowel. The remaining defect was closed with 3-0 V lock suture in a double-layer closure. I placed the bowel back into the intra-abdominal cavity. I next reduce the hernia sac contents and transected it. I did a primary closure of the periumbilical hernia with a #1 Stratafix suture. I then closed the midline of the incision with #1 Looped PDS. The subcutaneous tissue was irrigated and closed in layers with 3-0 Vicryl as she had a thick abdominal wall. I did leave a drain in the subcutaneous tissue as I was concerned that she might form a seroma later on. The skin was closed with angely and a sterile dressing was applied. Sponge, needle instrument counts were accurate. Her anesthesia was reversed, she was extubated and was taken to recovery room in stable condition. SHRUTHI WORRELL MD Oct 29, 2024 21:27
--- NOTE | 2024-10-29 21:35 | NUR ---
POSTOP ADMISSION PATIENT ARRIVED TO ROOM 314, ALERT, DROWSY. DENIES PAIN. AT BEDSIDE. PATIENT AND ABLE TO ANSWER ALL PATIENT HISTORY QUESTIONS. PATIENT AND ORIENTED TO ROOM, CALL BUTTON, PLAN OF CARE, FALL PREVENTION, TV. EDUCATED ON DVT PROPHYLAXIS, INCENTIVE SPIROMETER, LESLEE DRAIN. IV TO LEFT FOREARM INTACT, INFUSING NS AT 100ML/HR, NO SWELLING OR REDNESS NOTED. PATIENT IS DUE TO VOID AT 4AM, NO URGE AT THIS TIME. PATIENT EDUCATED ON SPLINTING TO PREVENT PAIN TO SURGICAL INCISION. PATIENT CALL BUTTON PLACED WITHIN REACH AND INSTRUCTED TO CALL WHEN FEELS URGE TO VOID SO MAY BE ASSISTED TO USE TOILET.
[2024-10-29] MEDS ORDERED: 0.9%NACL 50ML IV SCH (22:00)
[2024-10-29] MEDS: ZOSYN 3.375GM +NS 50ML IVPB SCH (22:38)
[2024-10-29] MEDS: FAMOTIDINE 20MG VIAL IV SCH (22:38)
[2024-10-30] VITALS (13 sets, daily range): BP systolic 112–132; BP diastolic 56–67; PULSE 63–86; RESP 17–20; TEMP 97.6–99.2; O2SAT 96
--- NOTE | 2024-10-30 06:34 | EKG ---
[facility] Test Date: 2024-10-29 Test Time: 14:02:35 Pat Name: ALYSIA ALFONSO Department: [facility] Room: 314 1 Gender: F Drapery Hanger: [id number] : 1975 Requested By: ITZEL SULLIVAN Order Number: [id number] Reading MD: Shereen Cowart Measurements Intervals [place] Rate: 52 P: 0 MS: 203 QRS: -26 QRSD: 109 T: 25 QT: 464 QTc: 417 Interpretive Statements Sinus bradycardia Ventricular premature complex Borderline prolonged MS interval Low voltage, extremity leads No previous ECG available for comparison Electronically Signed On 10-30-2024 11:35:26 CDT by Shereen Cowart Please click the below link to view image of tracing.
[2024-10-30 06:55] LABS: IMMATURE GRANULOCYTE ABSOLUTE 0.05 K/uL (0-1); NUCLEATED RED BLOOD CELLS 0.0 % (0.0-0.19); PLATELET COUNT (AUTO) 210 K/uL (130-400); RED BLOOD CELL COUNT(AUTO) 4.38 MIL/uL (4.00-5.50); RED CELL DISTRIBUTION WIDTH 19.9 % (11.0-15.5); WHITE BLOOD COUNT (AUTO) 13.5 K/uL (4.8-10.8)
[2024-10-30 07:04] LABS: CREATININE 0.7 mg/dL (0.5-1.0); GLOMERULAR FILTR. RATE CALC 107.0 mL/min (>90); GLUCOSE,RANDOM 109.0 mg/dL (70-105); SODIUM SERUM 142.0 mmol/L (136-145); UREA NITROGEN, BLOOD 11.0 mg/dL (7-18)
--- NOTE | 2024-10-30 10:58 | PN ---
[facility] PROGRESS NOTE Date of Service: Oct 30, 2024 Time of Service: 10:56 SUBJECTIVE: 10/30 patient is seen and examined at bedside, case discussed with the RN, no acute events overnight, patient NPO, NG tube to intermittent suction, underwent open primary repair of umbilical hernia with small-bowel resection and anastomosis 10/29/2024 secondary to small-bowel obstruction, incarcerated and strangulated umbilical hernia. The time of my visit alert oriented x3, hemodynamically stable, BP 120/64, afebrile, saturating normal on room air. WBC today 13.5, hemoglobin 10.8, hematocrit 33.5. Continue the patient on broad-spectrum IV antibiotics with Zosyn IV, trend WBC in a.m., continue to follow surgical input and recommendation, continue current pain medication with the adjustment as needed. Discussed with the patient, agreed and understood the information provided. REVIEW OF SYSTEMS CONSTITUTIONAL: Denies fevers, chills, or night sweats. No unintentional weight loss reported. NEUROLOGICAL: Denies headache, amaurosis fugax, motor weakness, sensory deficit, vertigo/spinning sensation, gait abnormalities, or tremors. ENT: No hearing loss, otalgia, otorrhea, rhinitis, rhinorrhea, hoarseness, or sore throat. CARDIOVASCULAR: Denies any exertional angina, dyspnea on exertion, orthopnea, paroxysmal nocturnal dyspnea, palpitations, life-threatening arrhythmias, claudication. PULMONARY: Denies any shortness of breath, cough, phlegm/sputum, hemoptysis, pleuritic chest pain. SLEEP: Denies morning headaches, daytime somnolence or napping. Denies difficulty falling asleep, staying asleep, waking from sleep. Denies knowledge of snoring. GASTROINTESTINAL: Denies any type of dysphagia to either liquids or solids. Denies nausea, vomiting, pyrosis, early satiety, abdominal pain, diarrhea, constipation, or changes in stool consistency or caliber. Denies coffee-ground emesis, hematemesis, hematochezia, or melanotic stools. GENITOURINARY: Denies frequency, urgency, nocturia, hematuria or incontinence (Storage/Irritative symptoms.) Low urinary stream, straining to void, urinary intermittency or hesitancy, splitting of the voiding stream, terminal dribbling. ENDOCRINOLOGIC: Denies polyuria, polydipsia, polyphagia or heat/cold intolerances. HEMATOLOGIC: Denies thrombophilia/previous clots, or coagulopathy/bleeding disorders. ONCOLOGIC: Denies personal history of malignancy. DERMATOLOGIC: Denies rashes or pruritus. PSYCHIATRIC: Denies any suicidal or homicidal ideation. Denies hallucinations. PHYSICAL EXAM GENERAL APPEARANCE: The patient is awake, alert, and oriented, in no acute cardiopulmonary distress. NEUROLOGICAL: Cranial nerves II-XII grossly intact. Motor is 5/5 in bilateral upper and lower extremities proximal to distal. No sensory deficits. HEENT: Face is symmetric. Pupils are equal and reactive. Extraocular movements are intact. NECK: Supple. No JVD. No thyromegaly. No submental, submandibular, pre- /postauricular, occipital or supraclavicular lymphadenopathy. CHEST: Normal chest expansion. No Telemetry. LUNGS: Absence of any rales, rhonchi or any wheezing. CARDIOVASCULAR: Regular. S1 and S2 normal. No appreciable rubs, murmurs or gallops. ABDOMEN: Soft, currently has abdominal binder present. Abdomen is soft to miguel ángel ch. She has a incarcerated abdominal hernia present she is noted to be hard to touch. There is guarding present around the hernia area. Bowel sounds are active. : Deferred. No Guillen. EXTREMITIES: Non-edematous and not cyanotic. No clubbing. Good capillary refill. SKIN: No skin breakdown. Vital Signs (last 8hr) Date Time Temp Pulse Resp B/P (MAP) Pulse Ox O2 Delivery O2 Flow Rate FiO2 10/30/24 08:00 98.1 63 20 128/64 96 Room Air 10/30/24 04:50 76 122/66 98 Room Air 10/30/24 04:00 98.4 76 18 129/65 96 Room Air 10/30/24 03:50 75 119/62 94 Room Air LABS: Laboratory: Test 10/30/24 06:49 10/29/24 13:54 10/29/24 12:00 Range/Units White Blood Count 13.5 H 4.8-10.8 K/uL Red Blood Count 4.38 4.00-5.50 MIL/uL Hemoglobin 10.8 L 12.0-16.0 g/dL Hematocrit 33.5 L 36-48 % Mean Corpuscular Volume 76.5 L 79-99 fL Mean Corpuscular Hemoglobin 24.7 L 27.0-33.0 pg Mean Corpuscular Hemoglobin Concent 32.2 32.0-36.0 g/dL Red Cell Distribution Width 19.9 H 11.0-15.5 % Platelet Count 210 130-400 K/uL Mean Platelet Volume 10.1 7.5-10.5 fL Immature Granulocyte % (Auto) 0.4 0-1 % Neutrophils (%) (Auto) 81.6 H 40.0-77.0 % Lymphocytes (%) (Auto) 12.0 L 21.0-51.0 % Monocytes (%) (Auto) 5.5 3.0-13.0 % Eosinophils (%) (Auto) 0.1 0.0-8.0 % Basophils (%) (Auto) 0.4 0.0-5.0 % Neutrophils # (Auto) 11.1 H 1.8-7.7 K/uL Lymphocytes # (Auto) 1.6 1.0-4.8 K/uL Monocytes # (Auto) 0.7 0.1-1.0 K/uL Eosinophils # (Auto) 0.01 0.00-0.70 K/uL Basophils # (Auto) 0.05 0.00-0.20 K/uL Absolute Immature Granulocyte (auto 0.05 0-1 K/uL Nucleated Red Blood Cells 0.0 0.0-0.19 % Sodium Level 142 136-145 mmol/L Potassium Level 3.9 3.5-5.1 mmol/L Chloride Level 109 101-111 mmol/L Carbon Dioxide Level 27 21-32 mmol/L Blood Urea Nitrogen 11 7-18 mg/dL Creatinine 0.7 0.5-1.0 mg/dL Glomerular Filtration Rate Calc 107 >90 mL/min Random Glucose 109 H 70-105 mg/dL Total Calcium 8.2 L 8.5-10.1 mg/dL Red Blood Cell Morphology See comments Prothrombin Time 10.7 9.6-11.6 SEC Prothromb Time International Ratio 1.01 0.85-1.15 Activated Partial Thromboplast Time 27.0 26.3-35.5 SEC Hemoglobin A1c 5.5 4.0-6.0 % Estimated Average Glucose (eAG) 111 70-126 mg/dL Total Bilirubin 0.3 0.2-1.0 mg/dL Aspartate Amino Transf (AST/SGOT) 27 10-37 U/L Alanine Aminotransferase (ALT/SGPT) 45 12-78 U/L Alkaline Phosphatase 126 50-136 U/L Total Protein 7.4 6.0-8.3 g/dL Albumin 3.6 3.5-5.0 g/dL Urine Color LIGHT-ORANGE YELLOW Urine Appearance TURBID CLEAR Urine pH 5.5 5.0-8.0 Urine Specific [place] 1.023 1.001-1.031 Urine Protein NEGATIVE NEGATIVE mg/dL Urine Glucose (UA) NEGATIVE NEGATIVE mg/dL Urine Ketones 10 H NEGATIVE mg/dL Urine Occult Blood MODERATE H NEGATIVE Urine Nitrate NEGATIVE NEGATIVE Urine Bilirubin NEGATIVE NEGATIVE mg/dL Urine Urobilinogen 0.2 0.2-1.0 mg/dL Urine Leukocyte Esterase NEGATIVE NEGATIVE Last/uL Urine RBC 6-10 H 0-1 /HPF Urine WBC 2-5 H 0-1 /HPF Urine Squamous Epithelial Cells FEW 0-2 /HPF Urine Bacteria None None Seen /HPF Urine HCG, Qualitative NEGATIVE NEGATIVE Urine Opiates Screen NEGATIVE NEGATIVE Urine Barbiturates Screen NEGATIVE NEGATIVE Urine Phencyclidine Screen NEGATIVE NEGATIVE Urine Amphetamines Screen NEGATIVE NEGATIVE Urine Benzodiazepines Screen NEGATIVE NEGATIVE Urine Cocaine Screen NEGATIVE NEGATIVE Urine Marijuana (THC) Screen POSITIVE H NEGATIVE Current Medications Medications (Trade) Dose Ordered Sig/Katarzyna Route PRN Reason Start Time Stop Time Status Last Admin Dose Admin Ceftriaxone Sodium (ROCEphine 1G INJ) 1 gm Q24H IVPB 10/29/24 15:00 10/29/24 21:40 DC 10/29/24 16:21 1 GM Famotidine (Pepcid 20mg Vial) 20 mg BID IV 10/29/24 21:00 11/28/24 20:59 10/30/24 08:11 20 MG Hydralazine HCl (APRESOLine 20MG INJ) 10 mg Q6H PRN IV ADMINISTER FOR SBP > 180 10/29/24 15:30 11/28/24 15:29 Ketorolac Tromethamine (toRADol) 15 mg Q6H PRN IV MODERATE PAIN (4-6) 10/29/24 18:00 11/03/24 17:59 10/30/24 10:21 15 MG Morphine Sulfate (morPHINE 2MG SYG) 2 mg Q4H PRN IVP SEVERE PAIN (7-10) 10/29/24 15:00 10/29/24 21:36 DC Morphine Sulfate (morPHINE 2MG SYG) 2 mg Q4H PRN IVP SEVERE PAIN (7-10) 10/30/24 09:30 11/06/24 09:29 Morphine Sulfate (morPHINE 4MG SYG) 4 mg Q4H PRN IVP SEVERE PAIN (7-10) 10/29/24 22:00 10/30/24 09:01 DC 10/29/24 23:12 4 MG Ondansetron HCl (zoFRAN 4MG INJ) 4 mg Q6H PRN IVP NAUSEA/VOMITING 10/29/24 15:00 11/28/24 14:59 Piperacillin Sod/ Tazobactam Sod (Zosyn 3.375gm+NS 50ml) 3.375 gm Q8H IVPB 10/29/24 22:00 11/08/24 21:59 10/30/24 05:21 3.375 GM Potassium Chloride 100 ml @ 50 mls/hr AD PRN IV POTASSIUM PROTOCOL 10/29/24 15:30 11/28/24 15:29 Sodium Chloride 1,000 ml @ 100 mls/hr Q10H IV 10/29/24 15:00 11/28/24 14:59 10/29/24 22:38 100 MLS/HR Sodium Chloride (NS 50ml) 50 ml AD IV 10/29/24 22:00 11/28/24 21:59 DIAGNOSTICS / RADIOLOGY: [ ] ASSESSMENT: Abdominal pain secondary to incarcerated umbilical hernia with concern for closed bowel loop obstruction POA Mild leukocytosis Dehydration History of fatty liver disease Obesity BMI 40.1 History of marijuana use PLAN: patient is seen and examined at bedside, case discussed with the RN, no acute events overnight, patient NPO, NG tube to intermittent suction, underwent open primary repair of umbilical hernia with small-bowel resection and anastomosis 10/29/2024 secondary to small-bowel obstruction, incarcerated and strangulated umbilical hernia. The time of my visit alert oriented x3, hemodynamically stable, BP 120/64, afebrile, saturating normal on room air. WBC today 13.5, hemoglobin 10.8, hematocrit 33.5. Continue the patient on broad-spectrum IV antibiotics with Zosyn IV, trend WBC in a.m., continue to follow surgical input and recommendation, continue current pain medication with the adjustment as needed. Discussed with the patient, agreed and understood the information provided. NEURO: Minimize central acting medications as possible. Fall Precautions. Well lighted room through the day and minimize interruptions through the night to prevent acute delirium. PULMONARY: Supplemental 02 as needed BiPAP as necessary, for respiratory distress Titrate Fio2 to keep Spo2 > or = 90% DuoNebs and CPT as needed IS hourly while awake for pulmonary hygiene prn Out of bed to chair as tolerated Maintain aspiration precautions at all times CARDIOVASCULAR: Follow hemodynamics. Vital signs per facility protocol GI & NUTRITION: Continue nutritional support Aspirations precautions Prokinetic agents and laxatives as needed KIDNEYS & ELECTROLYTES: Strict monitoring of intake and output Daily weights Avoid nephrotoxic agents Monitor electrolytes and replace as needed Goal urine output of 30mL/hr or 0.5mL/kg/hr Medications to be dosed according to renal function. Avoid contrast if possible ENDOCRINE: Maintain blood glucose between 100-180 at all times. Insulin sliding scale for blood glucose management Hypoglycemia and hyperglycemia protocol in place INFECTIOUS DISEASE: Trend temperature, WBC and procalcitonin level Follow cultures, deescalate antibiotics as soon as possible. Panculture if new onset fever HEMATOLOGY & COAGULATION: Monitor H&H. Keep Hgb > 7 Transfuse 1 unit of PRBC for Hgb < 7 Transfuse 1 pack of platelets of platelets < 20, 000 Watch for any signs and symptoms of bleeding SKIN: Pressure ulcer prevention per facility protocol Specialty mattress as needed ORTHO/REHAB Continue PT/OT PRN: MEDICATIONS Tylenol 650 mg po every 4 hrs for fever zofran 4 mg IV every 6 hrs for n/v Hydralazine 5 mg IV every 4 hrs systolic pressure > 160 bowel regiment: lactulose 20 gm PO BID PRN constipation Supportive measures: Continue GI and DVT prophylaxis Disposition: Pending improvement in clinical condition All questions answered time spent: > 35 min JULIAN MIN MD Oct 30, 2024 10:58
[2024-10-30] MEDS ORDERED: BENZOCAINE/MENTH/CETYLPYRD CL 1 EACH LOZENGE MM PRN (12:00)
[2024-10-30] MEDS: PHENOL 177 ML BOTTLE PO PRN (13:37)
--- NOTE | 2024-10-30 16:21 | PN ---
This is a 48-year-old female postop day one for umbilical hernia repair with small-bowel resection Interval history: This 48-year-old female seen in her room resting WBCs 13.5 with a hemoglobin of 10.[address] to LIS No flatus reported at this time LESLEE drain serosanguineous Incision clean and dry and well approximated Physical exam General: Awake alert and oriented Heart: Regular rate and rhythm} Lungs: Clear to auscultation no distress Abdomen: [Soft, nontender, nondistended Abdominal binder and use Assessment : This is a 48-year-old female status post umbilical hernia repair with small- bowel resection Plan: Patient to remain NPO NG tube to remain to LIS Patient encouraged to continue ambulating Continue with the abdominal binder use From surgical standpoint we will continue to follow patient closely and Dr. Up to be updated on patient's status Vitals/Labs Vital Signs Date Time Temp Pulse Resp B/P (MAP) Pulse Ox O2 Delivery O2 Flow Rate FiO2 10/30/24 12:00 97.5 76 18 112/58 99 Room Air 10/30/24 08:00 0 21 Laboratory Tests 10/30/24 06:49 Medications Current Medications Ketorolac Tromethamine 30 mg ONCE ONCE IM Last administered on 10/29/24at 12:42; Start 10/29/24 at 12:30; Stop 10/29/24 at 12:32; Status DC Orphenadrine Citrate 60 mg ONCE ONCE IM Last administered on 10/29/24at 12:42; Start 10/29/24 at 12:30; Stop 10/29/24 at 12:32; Status DC Pantoprazole Sodium 40 mg ONCE ONCE IVP Last administered on 10/29/24at 13:19; Start 10/29/24 at 13:30; Stop 10/29/24 at 13:31; Status DC Sodium Chloride 1,000 ml @ 0 mls/hr ONCE ONCE IV Last administered on 10/29/24at 13:56; Start 10/29/24 at 14:00; Stop 10/29/24 at 14:01; Status DC Ondansetron HCl 4 mg ONCE ONCE IVP Last administered on 10/29/24at 14:58; Start 10/29/24 at 14:00; Stop 10/29/24 at 14:01; Status DC Morphine Sulfate 2 mg ONCE ONCE IVP Last administered on 10/29/24at 13:57; Start 10/29/24 at 14:00; Stop 10/29/24 at 14:01; Status DC Famotidine 20 mg BID IV Last administered on 10/30/24at 08:11; Start 10/29/24 at 21:00; Stop 11/28/24 at 20:59 Ondansetron HCl 4 mg Q6H PRN IVP; Start 10/29/24 at 15:00; Stop 11/28/24 at 14:59 Sodium Chloride 1,000 ml @ 100 mls/hr Q10H IV Last administered on 10/29/24at 22:38; Start 10/29/24 at 15:00; Stop 11/28/24 at 14:59 Morphine Sulfate 2 mg Q4H PRN IVP; Start 10/29/24 at 15:00; Stop 10/29/24 at 21:36; Status DC Ketorolac Tromethamine 15 mg Q6H PRN IV Last administered on 10/30/24at 10:21; Start 10/29/24 at 18:00; Stop 11/03/24 at 17:59 Ceftriaxone Sodium 1 gm Q24H IVPB Last administered on 10/29/24at 16:21; Start 10/29/24 at 15:00; Stop 10/29/24 at 21:40; Status DC Potassium Chloride 100 ml @ 50 mls/hr AD PRN IV; Start 10/29/24 at 15:30; Stop 11/28/24 at 15:29 Hydralazine HCl 10 mg Q6H PRN IV; Start 10/29/24 at 15:30; Stop 11/28/24 at 15:29 Morphine Sulfate 2 mg STK-MED ONCE .ROUTE; Start 10/29/24 at 18:31; Stop 10/29/24 at 18:31; Status DC Lidocaine HCl 100 mg STK-MED ONCE .ROUTE; Start 10/29/24 at 18:39; Stop 10/29/24 at 18:39; Status DC Midazolam HCl 2 mg STK-MED ONCE .ROUTE; Start 10/29/24 at 18:39; Stop 10/29/24 at 18:40; Status DC Propofol 200 mg STK-MED ONCE IV; Start 10/29/24 at 18:39; Stop 10/29/24 at 18:40; Status DC Succinylcholine Chloride 200 mg STK-MED ONCE .ROUTE; Start 10/29/24 at 18:39; Stop 10/29/24 at 18:40; Status DC Rocuronium Fleming 50 mg STK-MED ONCE .ROUTE; Start 10/29/24 at 18:40; Stop 10/29/24 at 18:40; Status DC Fentanyl Citrate 100 mcg STK-MED ONCE .ROUTE; Start 10/29/24 at 18:52; Stop 10/29/24 at 18:53; Status DC Rocuronium Fleming 50 mg STK-MED ONCE .ROUTE; Start 10/29/24 at 19:37; Stop 10/29/24 at 19:37; Status DC Morphine Sulfate 4 mg Q4H PRN IVP Last administered on 10/29/24at 23:12; Start 10/29/24 at 22:00; Stop 10/30/24 at 09:01; Status DC Piperacillin Sod/ Tazobactam Sod 3.375 gm Q8H IVPB Last administered on 10/30/24at 13:36; Start 10/29/24 at 22:00; Stop 11/08/24 at 21:59 Sodium Chloride 50 ml AD IV; Start 10/29/24 at 22:00; Stop 10/30/24 at 11:36; Status DC Morphine Sulfate 2 mg Q4H PRN IVP; Start 10/30/24 at 09:30; Stop 11/06/24 at 09:29 Benzocaine 1 each Q4H PRN MM; Start 10/30/24 at 12:00; Stop 10/30/24 at 11:54; Status DC Phenol 1 SPRAY Q4H PRN PO Last administered on 10/30/24at 13:37; Start 10/30/24 at 12:00; Stop 11/29/24 at 11:59 Enoxaparin Sodium 40 mg DAILY SQ; Start 10/31/24 at 09:00; Stop 11/30/24 at 08:59 TAYA WINSTON Jr. Oct 30, 2024 16:21
--- NOTE | 2024-10-30 22:14 | NUR ---
2109 PATIENT REQUESTING TO ASK PHYSICIAN ABOUT PULLING OUT NGT. SAYS SHE PASSED GAS ABOUT AN HOUR AGO. NO BM YET. NO N/V. SAW HER WALKING AROUND THE HALLWAY FOR OVER AN HOUR. PAGED MD VIA ANSWERING SERVICE. 2119 PATIENT'S CALLS ME OVER. PATIENT TOOK A SHOWER AND SAYS THAT IT "SLIPPED OUT". TOLD PATIENT I'M STILL AWAITING CALL BACK FROM . 2152 NO CALL BACK YET. CONTACTED ANSWERING SERVICE TO NOTIFY AND WAS TOLD WILL PAGE AGAIN. [address] Leila WORRELL. LET HER KNOW THE ABOVE INFORMATION. RECEIVED ORDERS. REGARDING NGT PULLING OUT: KEEP PATIENT NPO, NO ICE CHIPS. WILL SEE PATIENT TOMORROW. 2211 PATIENT NOTIFIED OF NEW ORDERS.
[2024-10-31 04:00] VITALS: BP 117/54; PULSE 76; RESP 18; TEMP 98.4
[2024-10-31 05:39] LABS: NUCLEATED RED BLOOD CELLS 0.0 % (0.0-0.19); PLATELET COUNT (AUTO) 197.0 K/uL (130-400); RED BLOOD CELL COUNT(AUTO) 4.11 MIL/uL (4.00-5.50); RED CELL DISTRIBUTION WIDTH 20.0 % (11.0-15.5); WHITE BLOOD COUNT (AUTO) 10.8 K/uL (4.8-10.8)
[2024-10-31 05:54] LABS: ASPARTATE AMINOTRANSFERASE 17.0 U/L (10-37); CREATININE 0.7 mg/dL (0.5-1.0); GLOMERULAR FILTR. RATE CALC 107.0 mL/min (>90); GLUCOSE,RANDOM 94.0 mg/dL (70-105); SODIUM SERUM 144.0 mmol/L (136-145); TOTAL PROTEIN, SERUM 6.3 g/dL (6.0-8.3); UREA NITROGEN, BLOOD 11.0 mg/dL (7-18)
[2024-10-31] MEDS ORDERED: LINA290C PO (06:48)
[2024-10-31 08:00] VITALS: BP 126/71; PULSE 75; RESP 19; TEMP 98.4; O2SAT 93
[2024-10-31] MEDS: ENOXAPARIN SODIUM 40 MG/0.4 ML SYRINGE SQ SCH (08:20)
[2024-10-31 12:00] VITALS: BP 120/65; PULSE 77; RESP 20; TEMP 98.1
--- NOTE | 2024-10-31 14:55 | NUR ---
[facility] Consult: Patient assessed by wound healing team. See wound assessment. Assessment and recommendations provided to primary nurse. Education provided. Addendum: 10/31/24 at 1555 by DRU ARMIJO RN RN/ Amended: Links added.
--- NOTE | 2024-10-31 15:01 | PN ---
[facility] PROGRESS NOTE Date of Service: Oct 31, 2024 Time of Service: 14:59 SUBJECTIVE: 10/30 patient is seen and examined at bedside, case discussed with the RN, no acute events overnight, patient NPO, NG tube to intermittent suction, underwent open primary repair of umbilical hernia with small-bowel resection and anastomosis 10/29/2024 secondary to small-bowel obstruction, incarcerated and strangulated umbilical hernia. The time of my visit alert oriented x3, hemodynamically stable, BP 120/64, afebrile, saturating normal on room air. WBC today 13.5, hemoglobin 10.8, hematocrit 33.5. Continue the patient on broad-spectrum IV antibiotics with Zosyn IV, trend WBC in a.m., continue to follow surgical input and recommendation, continue current pain medication with the adjustment as needed. Discussed with the patient, agreed and understood the information provided. 10/31 patient remains admitted to the medical floor, case discussed with the RN, no acute events overnight, patient remains NPO. At the time of my visit she is alert oriented x3, not passing gas, feels mildly bloated. Blood pressure 126/71, rest of vital signs are stable. Patient getting broad-spectrum IV antibiotics at the time of my visit. Patient is status post open primary repair of umbilical hernia with small-bowel resection and anastomosis 10/29/2024, continue current pain medication with the adjustment as needed, continue to follow surgical input and recommendations. REVIEW OF SYSTEMS CONSTITUTIONAL: Denies fevers, chills, or night sweats. No unintentional weight loss reported. NEUROLOGICAL: Denies headache, amaurosis fugax, motor weakness, sensory deficit, vertigo/spinning sensation, gait abnormalities, or tremors. ENT: No hearing loss, otalgia, otorrhea, rhinitis, rhinorrhea, hoarseness, or sore throat. CARDIOVASCULAR: Denies any exertional angina, dyspnea on exertion, orthopnea, paroxysmal nocturnal dyspnea, palpitations, life-threatening arrhythmias, claudication. PULMONARY: Denies any shortness of breath, cough, phlegm/sputum, hemoptysis, pleuritic chest pain. SLEEP: Denies morning headaches, daytime somnolence or napping. Denies difficulty falling asleep, staying asleep, waking from sleep. Denies knowledge of snoring. GASTROINTESTINAL: Denies any type of dysphagia to either liquids or solids. Denies nausea, vomiting, pyrosis, early satiety, abdominal pain, diarrhea, constipation, or changes in stool consistency or caliber. Denies coffee-ground emesis, hematemesis, hematochezia, or melanotic stools. GENITOURINARY: Denies frequency, urgency, nocturia, hematuria or incontinence (Storage/Irritative symptoms.) Low urinary stream, straining to void, urinary intermittency or hesitancy, splitting of the voiding stream, terminal dribbling. ENDOCRINOLOGIC: Denies polyuria, polydipsia, polyphagia or heat/cold intolerances. HEMATOLOGIC: Denies thrombophilia/previous clots, or coagulopathy/bleeding disorders. ONCOLOGIC: Denies personal history of malignancy. DERMATOLOGIC: Denies rashes or pruritus. PSYCHIATRIC: Denies any suicidal or homicidal ideation. Denies hallucinations. PHYSICAL EXAM GENERAL APPEARANCE: The patient is awake, alert, and oriented, in no acute cardiopulmonary distress. NEUROLOGICAL: Cranial nerves II-XII grossly intact. Motor is 5/5 in bilateral upper and lower extremities proximal to distal. No sensory deficits. HEENT: Face is symmetric. Pupils are equal and reactive. Extraocular movements are intact. NECK: Supple. No JVD. No thyromegaly. No submental, submandibular, pre- /postauricular, occipital or supraclavicular lymphadenopathy. CHEST: Normal chest expansion. No Telemetry. LUNGS: Absence of any rales, rhonchi or any wheezing. CARDIOVASCULAR: Regular. S1 and S2 normal. No appreciable rubs, murmurs or gallops. ABDOMEN: Soft, currently has abdominal binder present. Abdomen is soft to touch. She has a incarcerated abdominal hernia present she is noted to be hard to touch. There is guarding present around the hernia area. Bowel sounds are active. : Deferred. No Guillen. EXTREMITIES: Non-edematous and not cyanotic. No clubbing. Good capillary refill. SKIN: No skin breakdown. Vital Signs (last 8hr) Date Time Temp Pulse Resp B/P (MAP) Pulse Ox O2 Delivery O2 Flow Rate FiO2 10/31/24 08:00 98.4 75 19 126/71 93 Room Air 10/31/24 08:00 93 Room Air* 0 21 LABS: Laboratory: Test 10/31/24 05:26 8/20/25 06:49 Range/Units White Blood Count 10.8 4.8-10.8 K/uL Red Blood Count 4.11 4.00-5.50 MIL/uL Hemoglobin 10.0 L 12.0-16.0 g/dL Hematocrit 31.5 L 36-48 % Mean Corpuscular Volume 76.6 L 79-99 fL Mean Corpuscular Hemoglobin 24.3 L 27.0-33.0 pg Mean Corpuscular Hemoglobin Concent 31.7 L 32.0-36.0 g/dL Red Cell Distribution Width 20.0 H 11.0-15.5 % Platelet Count 197 130-400 K/uL Mean Platelet Volume 10.4 7.5-10.5 fL Nucleated Red Blood Cells 0.0 0.0-0.19 % Sodium Level 144 136-145 mmol/L Potassium Level 3.1 L 3.5-5.1 mmol/L Chloride Level 108 101-111 mmol/L Carbon Dioxide Level 24 21-32 mmol/L Blood Urea Nitrogen 11 7-18 mg/dL Creatinine 0.7 0.5-1.0 mg/dL Glomerular Filtration Rate Calc 107 >90 mL/min Random Glucose 94 70-105 mg/dL Total Calcium 8.2 L 8.5-10.1 mg/dL Magnesium Level 1.90 1.80-2.40 mg/dL Total Bilirubin 0.7 0.2-1.0 mg/dL Aspartate Amino Transf (AST/SGOT) 17 10-37 U/L Alanine Aminotransferase (ALT/SGPT) 27 12-78 U/L Alkaline Phosphatase 81 50-136 U/L Total Protein 6.3 6.0-8.3 g/dL Albumin 2.8 L 3.5-5.0 g/dL Immature Granulocyte % (Auto) 0.4 0-1 % Neutrophils (%) (Auto) 81.6 H 40.0-77.0 % Lymphocytes (%) (Auto) 12.0 L 21.0-51.0 % Monocytes (%) (Auto) 5.5 3.0-13.0 % Eosinophils (%) (Auto) 0.1 0.0-8.0 % Basophils (%) (Auto) 0.4 0.0-5.0 % Neutrophils # (Auto) 11.1 H 1.8-7.7 K/uL Lymphocytes # (Auto) 1.6 1.0-4.8 K/uL Monocytes # (Auto) 0.7 0.1-1.0 K/uL Eosinophils # (Auto) 0.01 0.00-0.70 K/uL Basophils # (Auto) 0.05 0.00-0.20 K/uL Absolute Immature Granulocyte (auto 0.05 0-1 K/uL Current Medications Medications (Trade) Dose Ordered Sig/Katarzyna Route PRN Reason Start Time Stop Time Status Last Admin Dose Admin Benzocaine (Cepacol Sore Throat Lozenge) 1 each Q4H PRN MM SORE THROAT 10/30/24 12:00 10/30/24 11:54 DC Ceftriaxone Sodium (ROCEphine 1G INJ) 1 gm Q24H IVPB 10/29/24 15:00 10/29/24 21:40 DC 10/29/24 16:21 1 GM Enoxaparin Sodium (Lovenox) 40 mg DAILY SQ 10/31/24 09:00 11/30/24 08:59 10/31/24 08:20 40 MG Famotidine (Pepcid 20mg Vial) 20 mg BID IV 10/29/24 21:00 11/28/24 20:59 10/31/24 08:20 20 MG Hydralazine HCl (APRESOLine 20MG INJ) 10 mg Q6H PRN IV ADMINISTER FOR SBP > 180 10/29/24 15:30 11/28/24 15:29 Ketorolac Tromethamine (toRADol) 15 mg Q6H PRN IV MODERATE PAIN (4-6) 10/29/24 18:00 11/03/24 17:59 10/31/24 11:16 15 MG Morphine Sulfate (morPHINE 2MG SYG) 2 mg Q4H PRN IVP SEVERE PAIN (7-10) 10/29/24 15:00 10/29/24 21:36 DC Morphine Sulfate (morPHINE 2MG SYG) 2 mg Q4H PRN IVP SEVERE PAIN (7-10) 10/30/24 09:30 11/06/24 09:29 Morphine Sulfate (morPHINE 4MG SYG) 4 mg Q4H PRN IVP SEVERE PAIN (7-10) 10/29/24 22:00 10/30/24 09:01 DC 10/29/24 23:12 4 MG Ondansetron HCl (zoFRAN 4MG INJ) 4 mg Q6H PRN IVP NAUSEA/VOMITING 10/29/24 15:00 11/28/24 14:59 Phenol (Sore Throat [place]) 1 SPRAY Q4H PRN PO SORE THROAT 10/30/24 12:00 11/29/24 11:59 10/30/24 20:48 1 SPRY Piperacillin Sod/ Tazobactam Sod (Zosyn 3.375gm+NS 50ml) 3.375 gm Q8H IVPB 10/29/24 22:00 11/08/24 21:59 10/31/24 05:32 3.375 GM Potassium Chloride 100 ml @ 50 mls/hr AD PRN IV POTASSIUM PROTOCOL 10/29/24 15:30 11/28/24 15:29 10/31/24 11:16 50 MLS/HR Sodium Chloride 1,000 ml @ 100 mls/hr Q10H IV 10/29/24 15:00 11/28/24 14:59 10/31/24 05:32 100 MLS/HR Sodium Chloride (NS 50ml) 50 ml AD IV 10/29/24 22:00 10/30/24 11:36 DC DIAGNOSTICS / RADIOLOGY: [ ] ASSESSMENT: Abdominal pain secondary to incarcerated umbilical hernia with concern for closed bowel loop obstruction POA s/p open primary repair of umbilical hernia with small-bowel resection and anastomosis 10/29/2024 Mild leukocytosis Dehydration History of fatty liver disease Obesity BMI 40.1 History of marijuana use PLAN: NEURO: Minimize central acting medications as possible. Fall Precautions. Well lighted room through the day and minimize interruptions through the night to prevent acute delirium. PULMONARY: Supplemental 02 as needed BiPAP as necessary, for respiratory distress Titrate Fio2 to keep Spo2 > or = 90% DuoNebs and CPT as needed IS hourly while awake for pulmonary hygiene prn Out of bed to chair as tolerated Maintain aspiration precautions at all times CARDIOVASCULAR: Follow hemodynamics. Vital signs per facility protocol GI & NUTRITION: Continue nutritional support Aspirations precautions Prokinetic agents and laxatives as needed KIDNEYS & ELECTROLYTES: Strict monitoring of intake and output Daily weights Avoid nephrotoxic agents Monitor electrolytes and replace as needed Goal urine output of 30mL/hr or 0.5mL/kg/hr Medications to be dosed according to renal function. Avoid contrast if possible ENDOCRINE: Maintain blood glucose between 100-180 at all times. Insulin sliding scale for blood glucose management Hypoglycemia and hyperglycemia protocol in place INFECTIOUS DISEASE: Trend temperature, WBC and procalcitonin level Follow cultures, deescalate antibiotics as soon as possible. Panculture if new onset fever HEMATOLOGY & COAGULATION: Monitor H&H. Keep Hgb > 7 Transfuse 1 unit of PRBC for Hgb < 7 Transfuse 1 pack of platelets of platelets < 20, 000 Watch for any signs and symptoms of bleeding SKIN: Pressure ulcer prevention per facility protocol Specialty mattress as needed ORTHO/REHAB Continue PT/OT PRN: MEDICATIONS Tylenol 650 mg po every 4 hrs for fever zofran 4 mg IV every 6 hrs for n/v Hydralazine 5 mg IV every 4 hrs systolic pressure > 160 bowel regiment: lactulose 20 gm PO BID PRN constipation Supportive measures: Continue GI and DVT prophylaxis Disposition: Pending improvement in clinical condition All questions answered time spent: > 35 min JULIAN MIN MD Oct 31, 2024 15:00
--- NOTE | 2024-10-31 15:58 | PN ---
TAYA WINSTON Jr. 10/31/24 1558: This is a 48-year-old female status post umbilical hernia repair with small- bowel resection postop day two Interval history: This 48-year-old female seen in her room resting Overnight NG tube removed by patient No abdominal pain reported Patient with flatus Patient is ambulating well labs and vitals unremarkable patient overall doing well Physical exam General: Awake alert and oriented Heart: Regular rate and rhythm} Lungs: Clear to auscultation no distress Abdomen: [Soft, nontender, nondistended Incisions clean and dry and well approximated Assessment : This is a 48-year-old female status post umbilical hernia repair with small- bowel resection Plan: From surgical standpoint we will start patient on clear liquids and advance as tolerated Patient to be started on simethicone q.6 as needed If patient is able to tolerate solid diet and pain controlled possible discharge tomorrow Dr. Worrell who has been updated on patient's status and surgical team will follow patient closely Vitals/Labs Vital Signs Date Time Temp Pulse Resp B/P (MAP) Pulse Ox O2 Delivery O2 Flow Rate FiO2 10/31/24 08:00 98.4 75 19 126/71 93 Room Air 10/31/24 08:00 0 21 Laboratory Tests 10/31/24 05:26 Medications Current Medications Ketorolac Tromethamine 30 mg ONCE ONCE IM Last administered on 10/29/24at 12:42; Start 10/29/24 at 12:30; Stop 10/29/24 at 12:32; Status DC Orphenadrine Citrate 60 mg ONCE ONCE IM Last administered on 10/29/24at 12:42; Start 10/29/24 at 12:30; Stop 10/29/24 at 12:32; Status DC Pantoprazole Sodium 40 mg ONCE ONCE IVP Last administered on 10/29/24at 13:19; Start 10/29/24 at 13:30; Stop 10/29/24 at 13:31; Status DC Sodium Chloride 1,000 ml @ 0 mls/hr ONCE ONCE IV Last administered on 10/29/24at 13:56; Start 10/29/24 at 14:00; Stop 10/29/24 at 14:01; Status DC Ondansetron HCl 4 mg ONCE ONCE IVP Last administered on 10/29/24at 14:58; Start 10/29/24 at 14:00; Stop 10/29/24 at 14:01; Status DC Morphine Sulfate 2 mg ONCE ONCE IVP Last administered on 10/29/24at 13:57; Start 10/29/24 at 14:00; Stop 10/29/24 at 14:01; Status DC Famotidine 20 mg BID IV Last administered on 10/31/24at 08:20; Start 10/29/24 at 21:00; Stop 11/28/24 at 20:59 Ondansetron HCl 4 mg Q6H PRN IVP; Start 10/29/24 at 15:00; Stop 11/28/24 at 14:59 Sodium Chloride 1,000 ml @ 100 mls/hr Q10H IV Last administered on 10/31/24at 05:32; Start 10/29/24 at 15:00; Stop 11/28/24 at 14:59 Morphine Sulfate 2 mg Q4H PRN IVP; Start 10/29/24 at 15:00; Stop 10/29/24 at 21:36; Status DC Ketorolac Tromethamine 15 mg Q6H PRN IV Last administered on 10/31/24at 11:16; Start 10/29/24 at 18:00; Stop 11/03/24 at 17:59 Ceftriaxone Sodium 1 gm Q24H IVPB Last administered on 10/29/24at 16:21; Start 10/29/24 at 15:00; Stop 10/29/24 at 21:40; Status DC Potassium Chloride 100 ml @ 50 mls/hr AD PRN IV Last administered on 10/31/24at 11:16; Start 10/29/24 at 15:30; Stop 11/28/24 at 15:29 Hydralazine HCl 10 mg Q6H PRN IV; Start 10/29/24 at 15:30; Stop 11/28/24 at 15:29 Morphine Sulfate 2 mg STK-MED ONCE .ROUTE; Start 10/29/24 at 18:31; Stop 10/29/24 at 18:31; Status DC Lidocaine HCl 100 mg STK-MED ONCE .ROUTE; Start 10/29/24 at 18:39; Stop 10/29/24 at 18:39; Status DC Midazolam HCl 2 mg STK-MED ONCE .ROUTE; Start 10/29/24 at 18:39; Stop 10/29/24 at 18:40; Status DC Propofol 200 mg STK-MED ONCE IV; Start 10/29/24 at 18:39; Stop 10/29/24 at 18:40; Status DC Succinylcholine Chloride 200 mg STK-MED ONCE .ROUTE; Start 10/29/24 at 18:39; Stop 10/29/24 at 18:40; Status DC Rocuronium [place] 50 mg STK-MED ONCE .ROUTE; Start 10/29/24 at 18:40; Stop 10/29/24 at 18:40; Status DC Fentanyl Citrate 100 mcg STK-MED ONCE .ROUTE; Start 10/29/24 at 18:52; Stop 10/29/24 at 18:53; Status DC Rocuronium [place] 50 mg STK-MED ONCE .ROUTE; Start 10/29/24 at 19:37; Stop 10/29/24 at 19:37; Status DC Morphine Sulfate 4 mg Q4H PRN IVP Last administered on 10/29/24at 23:12; Start 10/29/24 at 22:00; Stop 10/30/24 at 09:01; Status DC Piperacillin Sod/ Tazobactam Sod 3.375 gm Q8H IVPB Last administered on 10/31/24at 05:32; Start 10/29/24 at 22:00; Stop 11/08/24 at 21:59 Sodium Chloride 50 ml AD IV; Start 10/29/24 at 22:00; Stop 10/30/24 at 11:36; Status DC Morphine Sulfate 2 mg Q4H PRN IVP; Start 10/30/24 at 09:30; Stop 11/06/24 at 09:29 Benzocaine 1 each Q4H PRN MM; Start 10/30/24 at 12:00; Stop 10/30/24 at 11:54; Status DC Phenol 1 SPRAY Q4H PRN PO Last administered on 10/30/24at 20:48; Start 10/30/24 at 12:00; Stop 11/29/24 at 11:59 Enoxaparin Sodium 40 mg DAILY SQ Last administered on 10/31/24at 08:20; Start 10/31/24 at 09:00; Stop 11/30/24 at 08:59 Simethicone 80 mg QIDP PRN PO; Start 10/31/24 at 16:00; Stop 11/30/24 at 15:59; Status UNV SHRUTHI WORRELL MD 10/31/241927: As above Patient is passing some flatus. She still has complaints of being bloated. She has been ambulating. LESLEE drain is a little more sanguinous than serous but it is getting life cycle assessment analyst. Dressing is intact. Abdomen is a little distended. Overall patient is not uncomfortable. She is also tolerating clears. Continue clears for breakfast. I will put her on full liquids for lunch. I told her that she might be able to go home tomorrow or Monday probably more likely Monday because I want her to be pretty comfortable since we had to do a small-bowel resection. She asked about restarting her home medications that were off formulary. I told her to bring the medications and let her bedside nurse no who would call the hospitalist to restart them. TAYA WINSTON Jr. OPAL Oct 31, 2024 15:58 SHRUTHI WORRELL MD Oct 31, 2024 19:28
[2024-10-31 16:00] VITALS: BP 124/67; PULSE 61; RESP 19; TEMP 97.9
--- NOTE | 2024-10-31 17:37 | NUR ---
Discharge update: Patient started on clears today. Plan is to advance diet and d/c home tomorrow if tolerating diet.
[2024-10-31 19:00] VITALS: O2SAT 95
[2024-10-31 20:00] VITALS: BP 142/73; PULSE 72; RESP 18; TEMP 98.8
[2024-11-01] VITALS (7 sets, daily range): BP systolic 101–136; BP diastolic 48–79; PULSE 65–74; RESP 17–20; TEMP 97.7–99.1; O2SAT 96
[2024-11-01] MEDS: SIMETHICONE 80 MG TAB.CHEW PO PRN (04:46)
[2024-11-01 08:53] LABS: NUCLEATED RED BLOOD CELLS 0.0 % (0.0-0.19); PLATELET COUNT (AUTO) 229.0 K/uL (130-400); RED BLOOD CELL COUNT(AUTO) 4.46 MIL/uL (4.00-5.50); RED CELL DISTRIBUTION WIDTH 19.7 % (11.0-15.5); WHITE BLOOD COUNT (AUTO) 10.7 K/uL (4.8-10.8)
[2024-11-01 09:05] LABS: CREATININE 0.5 mg/dL (0.5-1.0); GLOMERULAR FILTR. RATE CALC 116.0 mL/min (>90); GLUCOSE,RANDOM 82.0 mg/dL (70-105); SODIUM SERUM 138.0 mmol/L (136-145); UREA NITROGEN, BLOOD 10.0 mg/dL (7-18)
[2024-11-01 09:09] LABS: ASPARTATE AMINOTRANSFERASE 18.0 U/L (10-37); TOTAL PROTEIN, SERUM 7.0 g/dL (6.0-8.3)
--- NOTE | 2024-11-01 13:43 | NUR ---
[facility] Follow-up: Patient re-assessed by wound healing team, Wound improving. Assessment and recommendation provided to nurse. Education provided. Addendum: 11/01/24 at 1344 by DRU ARMIJO RN RN/ Amended: Links added.
--- NOTE | 2024-11-01 15:18 | PN ---
[facility] PROGRESS NOTE Date of Service: Nov 01, 2024 Time of Service: 15:17 SUBJECTIVE: 10/30 patient is seen and examined at bedside, case discussed with the RN, no acute events overnight, patient NPO, NG tube to intermittent suction, underwent open primary repair of umbilical hernia with small-bowel resection and anastomosis 10/29/2024 secondary to small-bowel obstruction, incarcerated and strangulated umbilical hernia. The time of my visit alert oriented x3, hemodynamically stable, BP 120/64, afebrile, saturating normal on room air. WBC today 13.5, hemoglobin 10.8, hematocrit 33.5. Continue the patient on broad-spectrum IV antibiotics with Zosyn IV, trend WBC in a.m., continue to follow surgical input and recommendation, continue current pain medication with the adjustment as needed. Discussed with the patient, agreed and understood the information provided. 10/31 patient remains admitted to the medical floor, case discussed with the RN, no acute events overnight, patient remains NPO. At the time of my visit she is alert oriented x3, not passing gas, feels mildly bloated. Blood pressure 126/71, rest of vital signs are stable. Patient getting broad-spectrum IV antibiotics at the time of my visit. Patient is status post open primary repair of umbilical hernia with small-bowel resection and anastomosis 10/29/2024, continue current pain medication with the adjustment as needed, continue to follow surgical input and recommendations. 11/01 patient remains admitted to medical floor, case discussed with the RN, no acute events overnight, during my visit the patient is alert oriented x3, she has been started on full liquid diet, tolerating well, passing gas, no nausea, no vomiting, no abdominal pain, she feels better today compared to yesterday, she is currently getting broad-spectrum IV antibiotics. Continue to follow surgical input and recommendation, advanced diet as tolerated, anticipate discharge home over the weekend. REVIEW OF SYSTEMS CONSTITUTIONAL: Denies fevers, chills, or night sweats. No unintentional weight loss reported. NEUROLOGICAL: Denies headache, amaurosis fugax, motor weakness, sensory deficit, vertigo/spinning sensation, gait abnormalities, or tremors. ENT: No hearing loss, otalgia, otorrhea, rhinitis, rhinorrhea, hoarseness, or sore throat. CARDIOVASCULAR: Denies any exertional angina, dyspnea on exertion, orthopnea, paroxysmal nocturnal dyspnea, palpitations, life-threatening arrhythmias, claudication. PULMONARY: Denies any shortness of breath, cough, phlegm/sputum, hemoptysis, pleuritic chest pain. SLEEP: Denies morning headaches, daytime somnolence or napping. Denies diff iculty falling asleep, staying asleep, waking from sleep. Denies knowledge of snoring. GASTROINTESTINAL: Denies any type of dysphagia to either liquids or solids. Denies nausea, vomiting, pyrosis, early satiety, abdominal pain, diarrhea, constipation, or changes in stool consistency or caliber. Denies coffee-ground emesis, hematemesis, hematochezia, or melanotic stools. GENITOURINARY: Denies frequency, urgency, nocturia, hematuria or incontinence (Storage/Irritative symptoms.) Low urinary stream, straining to void, urinary intermittency or hesitancy, splitting of the voiding stream, terminal dribbling. ENDOCRINOLOGIC: Denies polyuria, polydipsia, polyphagia or heat/cold in tolerances. HEMATOLOGIC: Denies thrombophilia/previous clots, or coagulopathy/bleeding disorders. ONCOLOGIC: Denies personal history of malignancy. DERMATOLOGIC: Denies rashes or pruritus. PSYCHIATRIC: Denies any suicidal or homicidal ideation. Denies hallucinations. PHYSICAL EXAM GENERAL APPEARANCE: The patient is awake, alert, and oriented, in no acute cardiopulmonary distress. NEUROLOGICAL: Cranial nerves II-XII grossly intact. Motor is 5/5 in bilateral upper and lower extremities proximal to distal. No sensory deficits. HEENT: Face is symmetric. Pupils are equal and reactive. Extraocular movements are intact. NECK: Supple. No JVD. No thyromegaly. No submental, submandibular, pre- /postauricular, occipital or supraclavicular lymphadenopathy. CHEST: Normal chest expansion. No Telemetry. LUNGS: Absence of any rales, rhonchi or any wheezing. CARDIOVASCULAR: Regular. S1 and S2 normal. No appreciable rubs, murmurs or gallops. ABDOMEN: Soft, currently has abdominal binder present. Abdomen is soft to touch. She has a incarcerated abdominal hernia present she is noted to be hard to touch. There is guarding present around the hernia area. Bowel sounds are active. : Deferred. No Guillen. EXTREMITIES: Non-edematous and not cyanotic. No clubbing. Good capillary refill. SKIN: No skin breakdown. Vital Signs (last 8hr) Date Time Temp Pulse Resp B/P (MAP) Pulse Ox O2 Delivery O2 Flow Rate FiO2 11/01/24 11:41 97.9 66 17 135/63 98 Room Air 11/01/24 08:00 97.7 65 17 120/61 97 Room Air LABS: Laboratory: Test 11/01/24 08:45 Range/Units White Blood Count 10.7 4.8-10.8 K/uL Red Blood Count 4.46 4.00-5.50 MIL/uL Hemoglobin 10.9 L 12.0-16.0 g/dL Hematocrit 35.1 L 36-48 % Mean Corpuscular Volume 78.7 L 79-99 fL Mean Corpuscular Hemoglobin 24.4 L 27.0-33.0 pg Mean Corpuscular Hemoglobin Concent 31.1 L 32.0-36.0 g/dL Red Cell Distribution Width 19.7 H 11.0-15.5 % Platelet Count 229 130-400 K/uL Mean Platelet Volume 10.2 7.5-10.5 fL Nucleated Red Blood Cells 0.0 0.0-0.19 % Sodium Level 138 136-145 mmol/L Potassium Level 3.5 3.5-5.1 mmol/L Chloride Level 104 101-111 mmol/L Carbon Dioxide Level 26 21-32 mmol/L Blood Urea Nitrogen 10 7-18 mg/dL Creatinine 0.5 0.5-1.0 mg/dL Glomerular Filtration Rate Calc 116 >90 mL/min Random Glucose 82 70-105 mg/dL Total Calcium 8.4 L 8.5-10.1 mg/dL Magnesium Level 1.80 1.80-2.40 mg/dL Total Bilirubin 0.8 0.2-1.0 mg/dL Aspartate Amino Transf (AST/SGOT) 18 10-37 U/L Alanine Aminotransferase (ALT/SGPT) 28 12-78 U/L Alkaline Phosphatase 88 50-136 U/L Total Protein 7.0 6.0-8.3 g/dL Albumin 3.1 L 3.5-5.0 g/dL Current Medications Medications (Trade) Dose Ordered Sig/Katarzyna Route PRN Reason Start Time Stop Time Status Last Admin Dose Admin Benzocaine (Cepacol Sore Throat Lozenge) 1 each Q4H PRN MM SORE THROAT 10/30/24 12:00 10/30/24 11:54 DC Ceftriaxone Sodium (ROCEphine 1G INJ) 1 gm Q24H IVPB 10/29/24 15:00 10/29/24 21:40 DC 10/29/24 16:21 1 GM Chlorhexidine Gluconate (Peridex) 15 ml BID MM 11/01/24 21:00 11/15/24 20:59 Enoxaparin Sodium (Lovenox) 40 mg DAILY SQ 10/31/24 09:00 11/30/24 08:59 11/01/24 08:56 40 MG Famotidine (Pepcid 20mg Vial) 20 mg BID IV 10/29/24 21:00 11/28/24 20:59 11/01/24 08:51 20 MG Hydralazine HCl (APRESOLine 20MG INJ) 10 mg Q6H PRN IV ADMINISTER FOR SBP > 180 10/29/24 15:30 11/28/24 15:29 Ketorolac Tromethamine (toRADol) 15 mg Q6H PRN IV MODERATE PAIN (4-6) 10/29/24 18:00 11/03/24 17:59 10/31/24 11:16 15 MG Morphine Sulfate (morPHINE 2MG SYG) 2 mg Q4H PRN IVP SEVERE PAIN (7-10) 10/29/24 15:00 10/29/24 21:36 DC Morphine Sulfate (morPHINE 2MG SYG) 2 mg Q4H PRN IVP SEVERE PAIN (7-10) 10/30/24 09:30 11/06/24 09:29 Morphine Sulfate (morPHINE 4MG SYG) 4 mg Q4H PRN IVP SEVERE PAIN (7-10) 10/29/24 22:00 10/30/24 09:01 DC 10/29/24 23:12 4 MG Ondansetron HCl (zoFRAN 4MG INJ) 4 mg Q6H PRN IVP NAUSEA/VOMITING 10/29/24 15:00 11/28/24 14:59 Phenol (Sore Throat [place]) 1 SPRAY Q4H PRN PO SORE THROAT 10/30/24 12:00 11/29/24 11:59 10/30/24 20:48 1 SPRY Piperacillin Sod/ Tazobactam Sod (Zosyn 3.375gm+NS 50ml) 3.375 gm Q8H IVPB 10/29/24 22:00 11/08/24 21:59 11/01/24 04:46 3.375 GM Potassium Chloride 100 ml @ 50 mls/hr AD PRN IV POTASSIUM PROTOCOL 10/29/24 15:30 11/28/24 15:29 10/31/24 11:16 50 MLS/HR Simethicone (Mylicon) 80 mg QIDP PRN PO GI GAS 10/31/24 16:00 11/30/24 15:59 11/01/24 04:46 80 MG Sodium Chloride 1,000 ml @ 100 mls/hr Q10H IV 10/29/24 15:00 11/28/24 14:59 11/01/24 04:46 100 MLS/HR Sodium Chloride (NS 50ml) 50 ml AD IV 10/29/24 22:00 10/30/24 11:36 DC DIAGNOSTICS / RADIOLOGY: [ ] ASSESSMENT: Abdominal pain secondary to incarcerated umbilical hernia with concern for closed bowel loop obstruction POA s/p open primary repair of umbilical hernia with small-bowel resection and anastomosis 10/29/2024 Mild leukocytosis Dehydration History of fatty liver disease Obesity BMI 40.1 History of marijuana use PLAN: NEURO: Minimize central acting medications as possible. Fall Precautions. Well lighted room through the day and minimize interruptions through the night to prevent acute delirium. PULMONARY: Supplemental 02 as needed BiPAP as necessary, for respiratory distress Titrate Fio2 to keep Spo2 > or = 90% DuoNebs and CPT as needed IS hourly while awake for pulmonary hygiene prn Out of bed to chair as tolerated Maintain aspiration precautions at all times CARDIOVASCULAR: Follow hemodynamics. Vital signs per facility protocol GI & NUTRITION: Continue nutritional support Aspirations precautions Prokinetic agents and laxatives as needed KIDNEYS & ELECTROLYTES: Strict monitoring of intake and output Daily weights Avoid nephrotoxic agents Monitor electrolytes and replace as needed Goal urine output of 30mL/hr or 0.5mL/kg/hr Medications to be dosed according to renal function. Avoid contrast if possible ENDOCRINE: Maintain blood glucose between 100-180 at all times. Insulin sliding scale for blood glucose management Hypoglycemia and hyperglycemia protocol in place INFECTIOUS DISEASE: Trend temperature, WBC and procalcitonin level Follow cultures, deescalate antibiotics as soon as possible. Panculture if new onset fever HEMATOLOGY & COAGULATION: Monitor H&H. Keep Hgb > 7 Transfuse 1 unit of PRBC for Hgb < 7 Transfuse 1 pack of platelets of platelets < 20, 000 Watch for any signs and symptoms of bleeding SKIN: Pressure ulcer prevention per facility protocol Specialty mattress as needed ORTHO/REHAB Continue PT/OT PRN: MEDICATIONS Tylenol 650 mg po every 4 hrs for fever zofran 4 mg IV every 6 hrs for n/v Hydralazine 5 mg IV every 4 hrs systolic pressure > 160 bowel regiment: lactulose 20 gm PO BID PRN constipation Supportive measures: Continue GI and DVT prophylaxis Disposition: Pending improvement in clinical condition All questions answered time spent: > 35 min JULIAN MIN MD Nov 01, 2024 15:18
--- NOTE | 2024-11-01 16:17 | PN ---
This is a 48-year-old female status post umbilical hernia repair with small bowel resection Interval history: This 48-year-old female seen in her room Patient tolerating full liquids Pain controlled Labs unremarkable Patient is ambulating Physical exam General: Awake alert and oriented Heart: Regular rate and rhythm} Lungs: Clear to auscultation no distress Abdomen: [Soft, nontender, nondistended Assessment : This is a 48-year-old female status post umbilical hernia repair with small- bowel resection Plan: From surgical standpoint patient to advance to soft diet in the morning Patient encouraged to continue ambulating Patient is okay to resume home meds Dr. Up to be updated on patient's status and surgical team to follow patient closely. Possible discharge tomorrow Vitals/Labs Vital Signs Date Time Temp Pulse Resp B/P (MAP) Pulse Ox O2 Delivery O2 Flow Rate FiO2 11/01/24 15:37 97.9 72 18 105/56 97 Room Air 10/31/24 19:00 0 21 Laboratory Tests 11/01/24 05:03 11/01/24 08:45 Medications Current Medications Ketorolac Tromethamine 30 mg ONCE ONCE IM Last administered on 10/29/24at 12:42; Start 10/29/24 at 12:30; Stop 10/29/24 at 12:32; Status DC Orphenadrine Citrate 60 mg ONCE ONCE IM Last administered on 10/29/24at 12:42; Start 10/29/24 at 12:30; Stop 10/29/24 at 12:32; Status DC Pantoprazole Sodium 40 mg ONCE ONCE IVP Last administered on 10/29/24at 13:19; Start 10/29/24 at 13:30; Stop 10/29/24 at 13:31; Status DC Sodium Chloride 1,000 ml @ 0 mls/hr ONCE ONCE IV Last administered on 10/29/24at 13:56; Start 10/29/24 at 14:00; Stop 10/29/24 at 14:01; Status DC Ondansetron HCl 4 mg ONCE ONCE IVP Last administered on 10/29/24at 14:58; Start 10/29/24 at 14:00; Stop 10/29/24 at 14:01; Status DC Morphine Sulfate 2 mg ONCE ONCE IVP Last administered on 10/29/24at 13:57; Start 10/29/24 at 14:00; Stop 10/29/24 at 14:01; Status DC Famotidine 20 mg BID IV Last administered on 11/01/24at 08:51; Start 10/29/24 at 21:00; Stop 11/28/24 at 20:59 Ondansetron HCl 4 mg Q6H PRN IVP; Start 10/29/24 at 15:00; Stop 11/28/24 at 14:59 Sodium Chloride 1,000 ml @ 100 mls/hr Q10H IV Last administered on 11/01/24at 04:46; Start 10/29/24 at 15:00; Stop 11/28/24 at 14:59 Morphine Sulfate 2 mg Q4H PRN IVP; Start 10/29/24 at 15:00; Stop 10/29/24 at 21:36; Status DC Ketorolac Tromethamine 15 mg Q6H PRN IV Last administered on 10/31/24at 11:16; Start 10/29/24 at 18:00; Stop 11/03/24 at 17:59 Ceftriaxone Sodium 1 gm Q24H IVPB Last administered on 10/29/24at 16:21; Start 10/29/24 at 15:00; Stop 10/29/24 at 21:40; Status DC Potassium Chloride 100 ml @ 50 mls/hr AD PRN IV Last administered on 10/31/24at 11:16; Start 10/29/24 at 15:30; Stop 11/28/24 at 15:29 Hydralazine HCl 10 mg Q6H PRN IV; Start 10/29/24 at 15:30; Stop 11/28/24 at 15:29 Morphine Sulfate 2 mg STK-MED ONCE .ROUTE; Start 10/29/24 at 18:31; Stop 10/29/24 at 18:31; Status DC Lidocaine HCl 100 mg STK-MED ONCE .ROUTE; Start 10/29/24 at 18:39; Stop 10/29/24 at 18:39; Status DC Midazolam HCl 2 mg STK-MED ONCE .ROUTE; Start 10/29/24 at 18:39; Stop 10/29/24 at 18:40; Status DC Propofol 200 mg STK-MED ONCE IV; Start 10/29/24 at 18:39; Stop 10/29/24 at 18:40; Status DC Succinylcholine Chloride 200 mg STK-MED ONCE .ROUTE; Start 10/29/24 at 18:39; Stop 10/29/24 at 18:40; Status DC Rocuronium [place] 50 mg STK-MED ONCE .ROUTE; Start 10/29/24 at 18:40; Stop 10/29/24 at 18:40; Status DC Fentanyl Citrate 100 mcg STK-MED ONCE .ROUTE; Start 10/29/24 at 18:52; Stop 10/29/24 at 18:53; Status DC Rocuronium [place] 50 mg STK-MED ONCE .ROUTE; Start 10/29/24 at 19:37; Stop 10/29/24 at 19:37; Status DC Morphine Sulfate 4 mg Q4H PRN IVP Last administered on 10/29/24at 23:12; Start 10/29/24 at 22:00; Stop 10/30/24 at 09:01; Status DC Piperacillin Sod/ Tazobactam Sod 3.375 gm Q8H IVPB Last administered on 11/01/24at 04:46; Start 10/29/24 at 22:00; Stop 11/08/24 at 21:59 Sodium Chloride 50 ml AD IV; Start 10/29/24 at 22:00; Stop 10/30/24 at 11:36; Status DC Morphine Sulfate 2 mg Q4H PRN IVP; Start 10/30/24 at 09:30; Stop 11/06/24 at 09:29 Benzocaine 1 each Q4H PRN MM; Start 10/30/24 at 12:00; Stop 10/30/24 at 11:54; Status DC Phenol 1 SPRAY Q4H PRN PO Last administered on 10/30/24at 20:48; Start 10/30/24 at 12:00; Stop 11/29/24 at 11:59 Enoxaparin Sodium 40 mg DAILY SQ Last administered on 11/01/24at 08:56; Start 10/31/24 at 09:00; Stop 11/30/24 at 08:59 Simethicone 80 mg QIDP PRN PO Last administered on 11/01/24at 04:46; Start 10/31/24 at 16:00; Stop 11/30/24 at 15:59 Chlorhexidine Gluconate 15 ml BID MM; Start 11/01/24 at 21:00; Stop 11/15/24 at 20:59 TAYA WINSTON Jr. Nov 01, 2024 16:17
--- NOTE | 2024-11-01 16:42 | CONS ---
CONSULTATION NOTE Date of Service: Nov 01, 2024 Reason for Consultation: [ ] Requesting Physician: [ ] HISTORY OF PRESENT ILLNESS: [ ] REVIEW OF SYSTEMS CONSTITUTIONAL: Denies fever, chills, or fatigue. HEAD/FACE: No signs of trauma. EENT: Denies eye pain, blurred vision, double vision, or light sensitivity. RESPIRATORY: Denies shortness of breath, cough, wheezing CARDIOVASCULAR: Denies chest pain, palpitation, syncope GASTROINTESTINAL/ABDOMINAL: Denies abdominal pain, constipation, diarrhea, nausea or vomiting GENITOURINARY: Denies dysuria or hematuria. MUSCULOSKELETAL: Denies joint pain, tenderness, or trauma. INTEGUMENTARY: Denies rash or itchiness NEUROLOGICAL/PSYCH: Denies anxiety, depression, heat or cold intolerance. PAST MEDICAL HISTORY: [ ] PAST SURGICAL HISTORY: [ ] PAST SOCIAL HISTORY: [ ] FAMILY HISTORY: [ ] Coded Allergies: No Known Drug Allergies (Unverified Allergy, Unknown, 01/27/23) PHYSICAL EXAM EYES: Anicteric. Pupils equal and reactive. HENT: No oral thrush seen, moist Oral mucosa NECK: Supple, no JVD or thyromegaly. LUNGS: Good air entry. No rales, no rhonchi. CARDIOVASCULAR: S1, S2 regular. No murmur heard. ABDOMEN: Soft, non tender, bowel sounds present, no organomegaly CENTRAL NERVOUS SYSTEM: Awake, alert, oriented x 3. No focal deficits. SKIN: No rashes, no swelling. LYMPHATICS: No peripheral lymphadenopathy MUSCULOSKELETAL: No joint swelling, erythema or tenderness. EXTREMITIES: No cyanosis or clubbing BACK: No deformity, no pressure ulcer. GENITOURINARY: No dysuria or hematuria Vital Sign (Last 24 Hours) 10/31/24 11/01/24 19:00 15:37 Temp 97.9 Pulse 72 Resp 18 B/P (MAP) 105/56 Pulse Ox 97 O2 Delivery Room Air O2 Flow Rate 0 FiO2 21 Intake & Output (last 24hrs) 10/31/24 10/31/24 11/01/24 15:00 23:00 07:00 Intake Total 1120.0 ml Balance 1120.0 ml LABS: Laboratory: Test 11/01/24 08:45 Range/Units White Blood Count 10.7 4.8-10.8 K/uL Red Blood Count 4.46 4.00-5.50 MIL/uL Hemoglobin 10.9 L 12.0-16.0 g/dL Hematocrit 35.1 L 36-48 % Mean Corpuscular Volume 78.7 L 79-99 fL Mean Corpuscular Hemoglobin 24.4 L 27.0-33.0 pg Mean Corpuscular Hemoglobin Concent 31.1 L 32.0-36.0 g/dL Red Cell Distribution Width 19.7 H 11.0-15.5 % Platelet Count 229 130-400 K/uL Mean Platelet Volume 10.2 7.5-10.5 fL Nucleated Red Blood Cells 0.0 0.0-0.19 % Sodium Level 138 136-145 mmol/L Potassium Level 3.5 3.5-5.1 mmol/L Chloride Level 104 101-111 mmol/L Carbon Dioxide Level 26 21-32 mmol/L Blood Urea Nitrogen 10 7-18 mg/dL Creatinine 0.5 0.5-1.0 mg/dL Glomerular Filtration Rate Calc 116 >90 mL/min Random Glucose 82 70-105 mg/dL Total Calcium 8.4 L 8.5-10.1 mg/dL Magnesium Level 1.80 1.80-2.40 mg/dL Total Bilirubin 0.8 0.2-1.0 mg/dL Aspartate Amino Transf (AST/SGOT) 18 10-37 U/L Alanine Aminotransferase (ALT/SGPT) 28 12-78 U/L Alkaline Phosphatase 88 50-136 U/L Total Protein 7.0 6.0-8.3 g/dL Albumin 3.1 L 3.5-5.0 g/dL DIAGNOSTICS / RADIOLOGY: [ ] PROBLEM LIST : Medical Problems: (1) SBO (small bowel obstruction) ICD Codes: K56.609 - Unspecified intestinal obstruction, unspecified as to partial versus complete obstruction (2) Umbilical hernia, incarcerated ICD Codes: K42.0 - Umbilical hernia with obstruction, without gangrene PLAN: Wound care to wound to Left upper inner lip: Chlorhexidine gluconate 0.12% Rinse mouth twice daily for 30 seconds then spit out after rinsing AREN CHRISTIAN NP Nov 01, 2024 16:42
[2024-11-01] MEDS: CHLORHEXIDINE GLUCONATE 15 ML MOUTHWASH MM SCH (21:00)
[2024-11-01] MEDS: PoTASSium chloRIDE 20MEQ ER 20 MEQ ERTAB PO ONE (22:40)
[2024-11-02 01:13] VITALS: BP 126/59; PULSE 79; RESP 18; TEMP 98.2
[2024-11-02 04:03] VITALS: BP 133/78; PULSE 76; RESP 18; TEMP 98.1
[2024-11-02 06:19] LABS: NUCLEATED RED BLOOD CELLS 0.0 % (0.0-0.19); PLATELET COUNT (AUTO) 188.0 K/uL (130-400); RED BLOOD CELL COUNT(AUTO) 3.76 MIL/uL (4.00-5.50); RED CELL DISTRIBUTION WIDTH 19.2 % (11.0-15.5); WHITE BLOOD COUNT (AUTO) 8.6 K/uL (4.8-10.8)
[2024-11-02 06:47] LABS: ASPARTATE AMINOTRANSFERASE 16.0 U/L (10-37); CREATININE 0.5 mg/dL (0.5-1.0); GLOMERULAR FILTR. RATE CALC 116.0 mL/min (>90); GLUCOSE,RANDOM 82.0 mg/dL (70-105); SODIUM SERUM 142.0 mmol/L (136-145); TOTAL PROTEIN, SERUM 6.0 g/dL (6.0-8.3); UREA NITROGEN, BLOOD 9.0 mg/dL (7-18)
[2024-11-02 08:00] VITALS: BP 133/75; PULSE 67; RESP 18; TEMP 98; O2SAT 96
[2024-11-02] MEDS: LINACLOTIDE 290 MG PO SCH (08:42)
[2024-11-02] MEDS ORDERED: AMOX1TAB16 PO (09:55)
--- NOTE | 2024-11-02 09:57 | DS ---
Discharge Summary Hospital Course Summary: Patient initially admitted to the hospital on October 29, 2024 with the following history of the present illness: 48-year-old female with history of fatty liver disease who presented to the hospital secondary to abdominal pain. Patient states she has a history of umbilical hernia and she noted that she was having pain for the past two days. Her pain got worse today and she felt her hernia was hot to touch. She had asso ciated nausea vomiting. She felt her stomach was ' inflamed' the pain. She denied any fever, chills, chest pain, shortness of breath, dysuria. Denied any cardiac history and denies any chest pain with exertion. She only takes rezdrifa for fatty liver and is on diet control for diabetes mellitus type 2. Her Bowel movement was two days ago. Patient denied any diarrhea at home. She takes Linzess for constipation. Labs in the ED were notable for white count of 11.3, hemoglobin was 12.5, platelet count was 236 K sodium was 138, potassium was 3.4, bicarb was 24, creatinine was 0.6, blood glucose was one. Patient underwent a CT abdomen pelvis which showed incarcerated umbilical hernia containing small bowel with features concerning for closed loop bowel obstruction. There is bowel thickening with mesenteric edema that was noted In the ED general surgery was consulted who agreed to consult on the case. Additionally she also had a NG tube placed in the ER. HOSPITAL COURSE 10/30 patient is seen and examined at bedside, case discussed with the RN, no acute events overnight, patient NPO, NG tube to intermittent suction, underwent open primary repair of umbilical hernia with small-bowel resection and anastomosis 10/29/2024 secondary to small-bowel obstruction, incarcerated and strangulated umbilical hernia. The time of my visit alert oriented x3, hemodynamically stable, BP 120/64, afebrile, saturating normal on room air. WBC today 13.5, hemoglobin 10.8, hematocrit 33.5. Continue the patient on broad-spectrum IV antibiotics with Zosyn IV, trend WBC in a.m., continue to follow surgical input and recommendation, continue current pain medication with the adjustment as needed. Discussed with the patient, agreed and understood the information provided. 10/31 patient remains admitted to the medical floor, case discussed with the RN, no acute events overnight, patient remains NPO. At the time of my visit she is alert oriented x3, not passing gas, feels mildly bloated. Blood pressure 126/71, rest of vital signs are stable. Patient getting broad-spectrum IV antibiotics at the time of my visit. Patient is status post open primary repair of umbilical hernia with small-bowel resection and anastomosis 10/29/2024, continue current pain medication with the adjustment as needed, continue to follow surgical input and recommendations. 11/01 patient remains admitted to medical floor, case discussed with the RN, no acute events overnight, during my visit the patient is alert oriented x3, she has been started on full liquid diet, tolerating well, passing gas, no nausea, no vomiting, no abdominal pain, she feels better today compared to yesterday, she is currently getting broad-spectrum IV antibiotics. Continue to follow surgical input and recommendation, advanced diet as tolerated, anticipate discharge home over the weekend. 11/02 patient remains admitted to the medical floor, case discussed with the RN, no acute events overnight, patient is started on GI soft diet, tolerating well. Magnesium level of 1.7, we will give magnesium sulfate 2 g IV x1. We will give also potassium chloride 40 mEq p.o. x1. Follow surgical input and recommendations. C Consultant(s): General surgeon Procedure(s): status post open primary repair of umbilical hernia with small-bowel resection and anastomosis 10/29/2024 Assessment/Plan: Final diagnosis Abdominal pain secondary to incarcerated umbilical hernia with concern for closed bowel loop obstruction POA s/p open primary repair of umbilical hernia with small-bowel resection and anastomosis 10/29/2024 Mild leukocytosis Dehydration History of fatty liver disease Obesity BMI 40.1 History of marijuana use Discharge Instructions: The patient to follow with her primary care physician and General surgery as an outpatient, return to the hospital if condition changes, patient agreed with the plan and understood the information provided. Home Medications: Reported Medications Linaclotide (Linzess) 290 Mcg Capsule, 1 CAP PO DAILY 10/31/24 Time spent arranging discharge: 31-60 minutes JULIAN MIN MD Nov 02, 2024 09:57
[2024-11-02] MEDS ORDERED: MAGNESIUM 2GM PREMIX 50ML 50 ML IV SCH (10:00)
[2024-11-02] MEDS ORDERED: PoTASSium chloRIDE 20MEQ ER 20 MEQ ERTAB PO ONE (10:00)
[2024-11-02 12:00] VITALS: BP 139/80; PULSE 65; RESP 19; TEMP 98.4
--- NOTE | 2024-11-02 13:25 | PN ---
This is a 48-year-old female POD # four from umbilical hernia repair and small- bowel resection due to incarcerated umbilical hernia with gangrenous small bowel. Patient is doing well. She is ambulating and tolerating diet. Pain is well controlled. Abdomen is soft, nondistended, nontender, no rebound, no guarding. Drain is in place with scant serosanguineous drainage. Incision is clean dry and intact with angely in place. Patient is okay for discharge from a surgical standpoint. She should keep her LESLEE drain until follow up with Dr. Up. Lifting restrictions for four weeks. Follow up with Dr. Up in two weeks. Please call with any questions or concerns. Vitals/Labs Vital Signs Date Time Temp Pulse Resp B/P (MAP) Pulse Ox O2 Delivery O2 Flow Rate FiO2 11/02/24 12:00 98.4 65 19 139/80 96 Room Air 11/01/24 22:30 0 21 Laboratory Tests 11/02/24 05:47 FLY RATLIFF DO Nov 02, 2024 13:25
[2024-11-02 15:59] VITALS: BP 123/74; PULSE 71; RESP 19; TEMP 98.2
--- NOTE | 2024-11-02 18:28 | NUR ---
PATIENT DISCHARGED HOME ID BAND AND IV REMOVED. DISCHARGE INSTRUCTIONS EXPLAINED AND GIVEN TO PATIENT. PATIENT VERBALIZED UNDERSTANDING. LESLEE TEACHING WAS TAUGHT AND EXPLAINED. PATIENT VERBALIZED UNDERSTANDING AND PROVIDED TEACH BACK. BELONGINGS PACKED AND TAKEN BY PATIENT. WHEELED DOWN TO PRIVATE CAR.
== END 2024-11-02 18:15 | disposition home or self-care (01) | DRG 330 ==
LOC: EDH 11:19 → EDHIP 14:58 → 3CH 21:30
PROVIDERS: ADMIT Internal Medicine; ATTEND Internal Medicine
PROC: 0D9670Z Drainage of Stomach with Drainage Device, Via Natural or Artificial Opening (ICD-10-PCS; 2024-10-29)
PROC: 0D180Z8 Bypass Small Intestine to Small Intestine, Open Approach (ICD-10-PCS; 2024-10-29)
PROC: 0DB80ZZ Excision of Small Intestine, Open Approach (ICD-10-PCS; principal; 2024-10-29 18:39)
PROC: 0WQF0ZZ Repair Abdominal Wall, Open Approach (ICD-10-PCS; 2024-10-29 18:39)
DX: K42.0 Umbilical hernia with obstruction, without gangrene (principal); K55.9 Vascular disorder of intestine, unspecified; Z68.41 Body mass index [BMI] 40.0-44.9, adult; E86.0 Dehydration; D72.829 Elevated white blood cell count, unspecified; E66.9 Obesity, unspecified; E11.9 Type 2 diabetes mellitus without complications; K76.0 Fatty (change of) liver, not elsewhere classified; Z98.51 Tubal ligation status
CPT/HCPCS: 36415; 74018; 74176; 80048; 80053; 80305; 81001; 81025; 82948; 83036; 83735; 84132; 85025; 85027; 85610; 85730; 88302; 88307; 93005; 96372; 96374; 96375; 99285; A4344; A4450; A4606; G0378; J0330; J0696; J1650; J1885; J2003; J2250; J2270; J2405; J2470; J2543; J2704; J3010; J3480; J3490; J7030; A4930; J2360